=== PATIENT | female | born 1940 | race Caucasian/White ===

== ENCOUNTER 2016-07-15 12:46 | Inpatient (IN) ==
--- NOTE | 2016-07-15 14:18 | Emergency Department Note ---
Disposition Clinical Impression: Acute kidney injury, Dehydration Disposition: Admitted As Inpatient Referrals: Cristiana Briceño CNP [Primary Care Provider] - Forms: ED Satisfaction Letter Altered Mental Status HPI - General Chief Complaint: ED Altered Mental Status Stated Complaint: AMS Time Seen by Provider: 07/15/16 13:04 Source: family Limitations: altered mental status Nursing Notes Reviewed: Yes Vital Signs Reviewed: Yes - History of Present Illness HPI Narrative: Patient presents from the senior care with the complaint of altered mental status. Per family report they states the patient has been acting abnormally. There is a report of similar symptoms in the past. He states that she was eating paper and licking the countertops which they state is abnormal for her. Family at the bedside states the patient has no murmurs department 5 times for the same problem. Patient has been placed on Aricept for the past year. History of present illness was provided by the family. - Related Data Home Medications Medication Instructions Recorded Confirmed Cholecalciferol (D-3) [Vitamin D] 2,000 unit PO DAILY 03/12/16 07/15/16 Citalopram Hydrobromide 20 mg PO DAILY 03/12/16 07/15/16 [Citalopram HBr] Donepezil [Aricept] 10 mg PO HS 03/12/16 07/15/16 Folic Acid 2 mg PO DAILY 03/12/16 07/15/16 Lisinopril-HCTZ 10-12.5 [Prinzide 1 tab PO DAILY 03/12/16 07/15/16 10-12.5] Pravastatin Sodium [Pravachol] 20 mg PO HS 03/12/16 07/15/16 Multivit-Min/Iron/Folic/Lutein 1 tab PO DAILY 06/16/16 07/15/16 [Centrum Silver Women Tablet] Acetaminophen [Tylenol] 650 mg PO Q4H PRN 06/29/16 07/15/16 Memantine HCl [Namenda Xr] 21 mg PO QAM 07/15/16 07/15/16 Sulfamethoxazole/Trimeth SS 1 each PO DAILY 07/15/16 07/15/16 [Bactrim] Previous Rx's Medication Instructions Recorded Aspirin Enteric Coated [Aspirin EC] 81 mg PO DAILY 30 Days 06/18/16 LevETIRAcetam [Keppra] 1,000 mg PO QAM #20 tablet 07/01/16 LevETIRAcetam [Keppra] 500 mg PO QPM 20 Days 07/01/16 Allergies Allergy/AdvReac Type Severity Reaction Status Date / Time No Known Allergies Allergy Verified 06/16/16 16:02 Limitations: ROS unobtainable due to patients medical condition Past Medical History - Past Medical History Medical history: Reports: arthritis, dementia, GERD, hyperlipidemia, hypertension, osteoporosis, syncope, TIA, other Surgical history: Reports: other Psychiatric history: Reports: anxiety, depression, other - Social History Smoking Status: Never smoker Smokeless Tobacco Status: No Alcohol use: Reports: none Drug use: Reports: none Physical Exam - General Limitations: altered mental status General appearance: in no apparent distress - Head Head exam: atraumatic, normocephalic, normal inspection - Eye Eye exam: Present: normal appearance, PERRL, EOMI - ENT ENT exam: normal exam, normal oropharynx, mucous membranes moist - Neck Neck exam: Present: normal inspection, full ROM, trachea midline - Chest Chest inspection: Present: normal inspection, symmetric chest wall rise - Respiratory Respiratory exam: Present: normal lung sounds bilaterally - Cardiovascular Cardiovascular exam: Present: normal rhythm, tachycardia, normal heart sounds - Abdominal Exam Abdominal exam: Present: soft, Non-Tender. Absent: tenderness, distention, guarding, rebound, rigidity - Extremities Exam Extremities exam: Present: normal inspection, full ROM. Absent: tenderness, pedal edema - Back Exam Back exam: Present: normal inspection - Neurological Exam Neurological exam: Present: other (Limited secondary to patient's mental status) - Psychiatric Psychiatric exam: Present: other (Limited secondary to patient's mental status) - Skin Skin exam: Present: warm, dry Course Vital Signs Temperature 100.9 F H 07/15/16 12:47 Pulse Rate 107 07/15/16 12:47 Respiratory Rate 16 07/15/16 12:47 Blood Pressure 136/72 07/15/16 12:47 O2 Sat by Pulse Oximetry 97 07/15/16 12:47 Temperature 0 F L 07/15/16 15:28 Pulse Rate 107 07/15/16 20:14 Respiratory Rate 18 07/15/16 20:14 Blood Pressure 82/42 07/15/16 20:14 O2 Sat by Pulse Oximetry 96 07/15/16 20:14 Oxygen Delivery Oxygen Delivery Room Air Altered Mental Status - Differential Diagnosis Likely: altered mental status, delirium, hypoglycemia, hyponatremia, subarachnoid hemorrhage - Lab Data Result diagrams: 07/15/16 14:43 07/15/16 14:43 Lab Results 07/15/16 07/15/16 07/15/16 Range/Units 13:23 14:43 14:43 WBC 17.7 H (4.3-11.1) K/mcL RBC 4.06 (3.82-4.97) M/mcL Hgb 13.0 (11.5-15.4) g/dL Hct 38.6 (35.3-44.9) % MCV 95.1 (83.0-100.0) fL MCH 32.0 (28.0-33.3) pg MCHC 33.7 (31.6-35.5) g/dL RDW 13.7 (11.5-14.5) % Plt Count 259 (140-400) K/mcL MPV 8.7 L (9.4-12.4) fL Immature Gran % 0.7 (0-4) % Seg Neutrophils % 85.3 % Lymphocytes % 4.5 % Monocytes % 9.2 % Eosinophils % 0.1 % Basophils % 0.2 % Neutrophils # 15.1 H (1.6-8.9) K/mcL Lymphocytes # 0.8 (0.6-4.6) K/mcL Monocytes # 1.6 H (0.0-1.3) K/mcL Eosinophils # 0.0 (0.0-0.6) K/mcL Basophils # 0.0 (0.0-0.2) K/mcL PT 12.1 (9.4-12.1) Seconds INR 1.1 APTT 27.5 (26.0-36.0) Seconds Sodium (136-145) mEq/L Potassium (3.5-4.5) mEq/L Chloride (98-109) mEq/L Carbon Dioxide (19-29) mEq/L BUN (7-20) mg/dL Creatinine (0.57-1.11) mg/dL Est GFR ( Amer) (> 60) Est GFR (Non-Af Amer) (> 60) BUN/Creatinine Ratio (6-26) Glucose (70-99) mg/dL POC Glucose 288 H (58-89) Calculated Osmolality (280-300) Lactic Acid (0.5-2.2) mmol/L Calcium (8.6-10.8) mg/dL Total Bilirubin (0.2-1.2) mg/dL AST (5-34) Units/L ALT (0-55) Units/L Alkaline Phosphatase (38-126) Units/L Troponin I (0-0.03) ng/mL Serum Total Protein (6.0-8.3) g/dL Albumin (3.5-5.0) g/dL Globulin (2.4-3.5) g/dL Albumin/Globulin Ratio (1.1-2.2) Urine Color (Yellow) Urine Clarity (Clear) Urine pH (5.0-8.0) pH Units Ur Specific [place] (1.010-1.025) Urine Protein (Neg-Trace) mg/dL Urine Glucose (UA) (Normal) mg/dL Urine Ketones (Negative) mg/dL Urine Blood (Negative) Urine Nitrite (Negative) Urine Bilirubin (Negative) Urine Urobilinogen (Normal) mg/dL Ur Leukocyte Esterase (Negative) Ur Culture Indicated? (NO) CSF Volume mL CSF Appearance (Clear) CSF Color (Colorless) CSF RBC (0.000 - 0.002) M/mcL CSF Tot Nucleated Cells (0-5) TNC/mcL CSF Glucose (40-70) mg/dL CSF Xanth Comm (Not Observe) CSF Total Protein (15-45) mg/dL 07/15/16 07/15/16 07/15/16 Range/Units 14:43 14:43 14:43 WBC (4.3-11.1) K/mcL RBC (3.82-4.97) M/mcL Hgb (11.5-15.4) g/dL Hct (35.3-44.9) % MCV (83.0-100.0) fL MCH (28.0-33.3) pg MCHC (31.6-35.5) g/dL RDW (11.5-14.5) % Plt Count (140-400) K/mcL MPV (9.4-12.4) fL Immature Gran % (0-4) % Seg Neutrophils % % Lymphocytes % % Monocytes % % Eosinophils % % Basophils % % Neutrophils # (1.6-8.9) K/mcL Lymphocytes # (0.6-4.6) K/mcL Monocytes # (0.0-1.3) K/mcL Eosinophils # (0.0-0.6) K/mcL Basophils # (0.0-0.2) K/mcL PT (9.4-12.1) Seconds INR APTT (26.0-36.0) Seconds Sodium 136 (136-145) mEq/L Potassium 4.1 (3.5-4.5) mEq/L Chloride 104 (98-109) mEq/L Carbon Dioxide 21 (19-29) mEq/L BUN 22 H (7-20) mg/dL Creatinine 1.58 H (0.57-1.11) mg/dL Est GFR ( Amer) 39 L (> 60) Est GFR (Non-Af Amer) 32 L (> 60) BUN/Creatinine Ratio 14 (6-26) Glucose 238 H (70-99) mg/dL POC Glucose (58-89) Calculated Osmolality 293 (280-300) Lactic Acid 3.5 H (0.5-2.2) mmol/L Calcium 9.5 (8.6-10.8) mg/dL Total Bilirubin 0.5 (0.2-1.2) mg/dL AST 19 (5-34) Units/L ALT 24 (0-55) Units/L Alkaline Phosphatase 97 (38-126) Units/L Troponin I 0.00 (0-0.03) ng/mL Serum Total Protein 7.2 (6.0-8.3) g/dL Albumin 3.7 (3.5-5.0) g/dL Globulin 3.5 (2.4-3.5) g/dL Albumin/Globulin Ratio 1.1 (1.1-2.2) Urine Color (Yellow) Urine Clarity (Clear) Urine pH (5.0-8.0) pH Units Ur Specific [place] (1.010-1.025) Urine Protein (Neg-Trace) mg/dL Urine Glucose (UA) (Normal) mg/dL Urine Ketones (Negative) mg/dL Urine Blood (Negative) Urine Nitrite (Negative) Urine Bilirubin (Negative) Urine Urobilinogen (Normal) mg/dL Ur Leukocyte Esterase (Negative) Ur Culture Indicated? (NO) CSF Volume mL CSF Appearance (Clear) CSF Color (Colorless) CSF RBC (0.000 - 0.002) M/mcL CSF Tot Nucleated Cells (0-5) TNC/mcL CSF Glucose (40-70) mg/dL CSF Xanth Comm (Not Observe) CSF Total Protein (15-45) mg/dL 07/15/16 07/15/16 07/15/16 Range/Units 15:35 19:50 21:08 WBC (4.3-11.1) K/mcL RBC (3.82-4.97) M/mcL Hgb (11.5-15.4) g/dL Hct (35.3-44.9) % MCV (83.0-100.0) fL MCH (28.0-33.3) pg MCHC (31.6-35.5) g/dL RDW (11.5-14.5) % Plt Count (140-400) K/mcL MPV (9.4-12.4) fL Immature Gran % (0-4) % Seg Neutrophils % % Lymphocytes % % Monocytes % % Eosinophils % % Basophils % % Neutrophils # (1.6-8.9) K/mcL Lymphocytes # (0.6-4.6) K/mcL Monocytes # (0.0-1.3) K/mcL Eosinophils # (0.0-0.6) K/mcL Basophils # (0.0-0.2) K/mcL PT (9.4-12.1) Seconds INR APTT (26.0-36.0) Seconds Sodium (136-145) mEq/L Potassium (3.5-4.5) mEq/L Chloride (98-109) mEq/L Carbon Dioxide (19-29) mEq/L BUN (7-20) mg/dL Creatinine (0.57-1.11) mg/dL Est GFR ( Amer) (> 60) Est GFR (Non-Af Amer) (> 60) BUN/Creatinine Ratio (6-26) Glucose (70-99) mg/dL POC Glucose 210 H (58-89) Calculated Osmolality (280-300) Lactic Acid (0.5-2.2) mmol/L Calcium (8.6-10.8) mg/dL Total Bilirubin (0.2-1.2) mg/dL AST (5-34) Units/L ALT (0-55) Units/L Alkaline Phosphatase (38-126) Units/L Troponin I (0-0.03) ng/mL Serum Total Protein (6.0-8.3) g/dL Albumin (3.5-5.0) g/dL Globulin (2.4-3.5) g/dL Albumin/Globulin Ratio (1.1-2.2) Urine Color Yellow (Yellow) Urine Clarity Clear (Clear) Urine pH 5.5 (5.0-8.0) pH Units Ur Specific [place] 1.016 (1.010-1.025) Urine Protein Negative (Neg-Trace) mg/dL Urine Glucose (UA) 100 H (Normal) mg/dL Urine Ketones Negative (Negative) mg/dL Urine Blood Negative (Negative) Urine Nitrite Negative (Negative) Urine Bilirubin Negative (Negative) Urine Urobilinogen Normal (Normal) mg/dL Ur Leukocyte Esterase Negative (Negative) Ur Culture Indicated? NO (NO) CSF Volume 6.0 mL CSF Appearance Clear (Clear) CSF Color Colorless (Colorless) CSF RBC < 0.002 (0.000 - 0.002) M/mcL CSF Tot Nucleated Cells 5 (0-5) TNC/mcL CSF Glucose 137 H (40-70) mg/dL CSF Xanth Comm Not Observed (Not Observe) CSF Total Protein 27 (15-45) mg/dL - Radiology Data Radiology results reviewed: Yes I reviewed the patient's radiology results. Chest X-Ray 07/15/16 13:18 IMPRESSION: No evidence of acute cardiopulmonary disease. D/ / Sg Gutierrez MD / Sg Gutierrez MD Interpreting Provider: Sg Gutierrez MD Head CT 07/15/16 13:18 IMPRESSION: No acute intracranial abnormality. D/ / Sg Gutierrez MD / Sg Gutierrez MD Interpreting Provider: Sg Gutierrez MD Lumbar Puncture Fluoroscopy 07/15/16 16:20 IMPRESSION: Successful fluoroscopic-guided lumbar puncture. Of note, the patient moved during collection of the 2nd and 3rd vial, resulting in blood tinged CSF. The collection was terminated after more blood was observed in the tubing during collection of the 4th vial. Findings were discussed with Dr. Nix at approximately 7:30 p.m. on 07/15/2016. D/ / Rosie Peralta MD / Rosie Peralta MD Interpreting Provider: Rosie Peralta MD - EKG Data EKG shows normal: sinus rhythm Rate: normal Rhythm: NSR TPA Checklist - LKW: 3-4.5 hrs Add. Contraindications Patient/family understanding: The patient/family members have been counseled and understood the risk, benefit , and alternatives of treatment. Critical Care Time Total Critical Care Time: 30 Attestation: Critical care performed: Time is exclusive of separately billable procedures. Time includes: direct patient care, patient reassessment, coordination of patient care, interpretation of data (laboratory data, radiology data, and respiratory data), review of patient's medical records, medical consultation and documentation of patient care. Procedures included in critical care time: Procedures excluded from critical care time:
[2016-07-15 14:56] LABS: Basophils % 0.2 %; Eosinophils % 0.1 %; Hematocrit 38.6 % (35.3-44.9); Immature Granulocytes % 0.7 % (0-4); Lymphocytes # 0.8 K/mcL (0.6-4.6); Lymphocytes % 4.5 %; Mean Corpuscular HGB Conc 33.7 g/dL (31.6-35.5); Mean Corpuscular Volume 95.1 fL (83.0-100.0); Mean Platelet Volume 8.7 fL (9.4-12.4); Monocytes # 1.6 K/mcL (0.0-1.3); Monocytes % 9.2 %; Neutrophils # 15.1 K/mcL (1.6-8.9); Platelet Count 259 K/mcL (140-400); Red Blood Count 4.06 M/mcL (3.82-4.97); Red Cell Distribution Width 13.7 % (11.5-14.5); Segmented Neutrophils % 85.3 %
[2016-07-15 15:11] LABS: Albumin 3.7 g/dL (3.5-5.0); Albumin/Globulin Ratio 1.1 (1.1-2.2); Bilirubin,Total 0.5 mg/dL (0.2-1.2); Calcium 9.5 mg/dL (8.6-10.8); Globulin 3.5 g/dL (2.4-3.5); Potassium 4.1 mEq/L (3.5-4.5); Total Protein 7.2 g/dL (6.0-8.3)
[2016-07-15 15:12] LABS: INR 1.1; Prothrombin Time 12.1 Seconds (9.4-12.1)
[2016-07-15 15:15] LABS: Activated Partial Thrombo Time 27.5 Seconds (26.0-36.0)
[2016-07-15] MEDS ORDERED: *HR* LORazepam 2 MG/ML VIAL IVP ONE (15:22)
[2016-07-15 15:47] LABS: Bilirubin,Urine Negative (Negative); Blood,Urine Negative (Negative); Clarity,Urine Clear (Clear); Color,Urine Yellow (Yellow); Glucose,Urine (UA) 100 mg/dL (Normal); Ketones,Urine Negative (Negative); Leukocyte Esterase,Urine Negative (Negative); Nitrite,Urine Negative (Negative); PH,Urine 5.5 pH Units (5.0-8.0); Protein,Urine Negative (Neg-Trace); Specific Gravity,Urine 1.016 (1.010-1.025); Urobilinogen,Urine Normal (Normal)
[2016-07-15 20:14] LABS: Red Blood Cell,CSF < 0.002 M/mcL
[2016-07-15] MEDS ORDERED: 0.9 % Sodium Chloride 500 ML IVC ONE (20:18)
[2016-07-15 20:21] LABS: Appearance,CSF Clear (Clear)
[2016-07-15 20:35] LABS: Glucose,CSF 137 mg/dL (40-70); Total Protein,CSF 27 mg/dL (15-45)
[2016-07-15] MEDS ORDERED: Ampicillin 1,000 MG in 0.9 % Sodium Chloride Mini Bag 100 ML IVPB ONE (21:31)
[2016-07-15] MEDS ORDERED: Acyclovir 500 MG in D5% in Water 100 ML IVPB ONE (21:31)
[2016-07-15] MEDS ORDERED: Vancomycin 1,000 MG in D5% in Water 250 ML IVPB ONE (21:34)
[2016-07-15] MEDS ORDERED: 0.9 % Sodium Chloride 1,000 ML IVC SCH (21:45)
[2016-07-16] MEDS ORDERED: Acetaminophen 325 MG TABLET PO PRN (00:35)
[2016-07-16] MEDS ORDERED: Naloxone 0.4 MG/ML INJ IVP PRN (00:37)
[2016-07-16] MEDS ORDERED: Ondansetron 4 MG/2 ML VIAL IVP PRN (00:37)
--- NOTE | 2016-07-16 02:37 | Internal Med History&Physical ---
Date of Encounter: 07/16/16 Time of Encounter: 21:30 Internal Medicine - H&P: HPI Chief complaint: altered mental status History of present illness: Ms. Suh is a 76 year old female [place] resident, with medical history significant for dementia was brought in by family on account of altered mental status. The family was not at bedside when I examined the patient, attempts to reach her son, Liam by telephone was unsuccessful. HPI obtained for ED notes. As per ED notes, the patient has had similar episodes in the past, this time she has been eating paper and licking counterops. She is on Aricepy for Dementia. As per RN, she has had 3 liquid bowel movements since she arrived the floor. Stool sample are being sent to laboratory. I am unable to obtain other information for her. She is a very poor historian. I am unable to confirm her code status, hence will maintain a FULL CODE status until informed otherwise by a living will document or wish of a legal POA. Her son, Liam Saenz ([phone]) is listed on her facesheet as her emergency contact. Medical history: Reports: arthritis, dementia, GERD, hyperlipidemia, hypertension, osteoporosis, syncope, TIA, other Surgical history: Reports: other Psychiatric history: Reports: anxiety, depression, other Smoking Status: Never smoker Smokeless Tobacco Status: No Alcohol use: Reports: none Drug use: Reports: none Family history: Not obtainable due to patient's mental status ROS: Not obtainable due to patient's mental status, see reported items under HPI Vital Signs Temperature 100.9 F H 07/15/16 12:47 Pulse Rate 107 07/15/16 12:47 Respiratory Rate 16 07/15/16 12:47 Blood Pressure 136/72 07/15/16 12:47 O2 Sat by Pulse Oximetry 97 07/15/16 12:47 Temperature 0 F L 07/15/16 15:28 Pulse Rate 107 07/15/16 20:14 Respiratory Rate 18 07/15/16 20:14 Blood Pressure 82/42 07/15/16 20:14 O2 Sat by Pulse Oximetry 96 07/15/16 20:14 Not in distress, not pale, anicteric, afebrile,acyanotic, she only intermittently verbal, some cognitive impair, emanation suggestive of fecal incontinence or fecal accident. HEENT: Trachea is central, no cervical or jugular lymphadenopathy. Chest: Clinically clear Heart: rrr, hs1/2, no murmurs. Abdomen: soft, non-tender, no masses. 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 Able to answer a few questions. She does not know she is in hospital or why she is here. She moves all limbs spontaneously. Neck is supple, [place] is negative Extremities: No pedal edema, normal pedal pulses, no calf tenderness SKIN: No active skin lesion Lab Results 07/15/16 07/15/16 07/15/16 Range/Units 13:23 14:43 14:43 WBC 17.7 H (4.3-11.1) K/mcL RBC 4.06 (3.82-4.97) M/mcL Hgb 13.0 (11.5-15.4) g/dL Hct 38.6 (35.3-44.9) % MCV 95.1 (83.0-100.0) fL MCH 32.0 (28.0-33.3) pg MCHC 33.7 (31.6-35.5) g/dL RDW 13.7 (11.5-14.5) % Plt Count 259 (140-400) K/mcL MPV 8.7 L (9.4-12.4) fL Immature Gran % 0.7 (0-4) % Seg Neutrophils % 85.3 % Lymphocytes % 4.5 % Monocytes % 9.2 % Eosinophils % 0.1 % Basophils % 0.2 % Neutrophils # 15.1 H (1.6-8.9) K/mcL Lymphocytes # 0.8 (0.6-4.6) K/mcL Monocytes # 1.6 H (0.0-1.3) K/mcL Eosinophils # 0.0 (0.0-0.6) K/mcL Basophils # 0.0 (0.0-0.2) K/mcL PT 12.1 (9.4-12.1) Seconds INR 1.1 APTT 27.5 (26.0-36.0) Seconds Sodium (136-145) mEq/L Potassium (3.5-4.5) mEq/L Chloride (98-109) mEq/L Carbon Dioxide (19-29) mEq/L BUN (7-20) mg/dL Creatinine (0.57-1.11) mg/dL Est GFR ( Amer) (> 60) Est GFR (Non-Af Amer) (> 60) BUN/Creatinine Ratio (6-26) Glucose (70-99) mg/dL POC Glucose 288 H (58-89) Calculated Osmolality (280-300) Lactic Acid (0.5-2.2) mmol/L Calcium (8.6-10.8) mg/dL Total Bilirubin (0.2-1.2) mg/dL AST (5-34) Units/L ALT (0-55) Units/L Alkaline Phosphatase (38-126) Units/L Troponin I (0-0.03) ng/mL Serum Total Protein (6.0-8.3) g/dL Albumin (3.5-5.0) g/dL Globulin (2.4-3.5) g/dL Albumin/Globulin Ratio (1.1-2.2) Urine Color (Yellow) Urine Clarity (Clear) Urine pH (5.0-8.0) pH Units Ur Specific [place] (1.010-1.025) Urine Protein (Neg-Trace) mg/dL Urine Glucose (UA) (Normal) mg/dL Urine Ketones (Negative) mg/dL Urine Blood (Negative) Urine Nitrite (Negative) Urine Bilirubin (Negative) Urine Urobilinogen (Normal) mg/dL Ur Leukocyte Esterase (Negative) Ur Culture Indicated? (NO) CSF Volume mL CSF Appearance (Clear) CSF Color (Colorless) CSF RBC (0.000 - 0.002) M/mcL CSF Tot Nucleated Cells (0-5) TNC/mcL CSF Glucose (40-70) mg/dL CSF Xanth Comm (Not Observe) CSF Total Protein (15-45) mg/dL 07/15/16 07/15/16 07/15/16 Range/Units 14:43 14:43 14:43 WBC (4.3-11.1) K/mcL RBC (3.82-4.97) M/mcL Hgb (11.5-15.4) g/dL Hct (35.3-44.9) % MCV (83.0-100.0) fL MCH (28.0-33.3) pg MCHC (31.6-35.5) g/dL RDW (11.5-14.5) % Plt Count (140-400) K/mcL MPV (9.4-12.4) fL Immature Gran % (0-4) % Seg Neutrophils % % Lymphocytes % % Monocytes % % Eosinophils % % Basophils % % Neutrophils # (1.6-8.9) K/mcL Lymphocytes # (0.6-4.6) K/mcL Monocytes # (0.0-1.3) K/mcL Eosinophils # (0.0-0.6) K/mcL Basophils # (0.0-0.2) K/mcL PT (9.4-12.1) Seconds INR APTT (26.0-36.0) Seconds Sodium 136 (136-145) mEq/L Potassium 4.1 (3.5-4.5) mEq/L Chloride 104 (98-109) mEq/L Carbon Dioxide 21 (19-29) mEq/L BUN 22 H (7-20) mg/dL Creatinine 1.58 H (0.57-1.11) mg/dL Est GFR ( Amer) 39 L (> 60) Est GFR (Non-Af Amer) 32 L (> 60) BUN/Creatinine Ratio 14 (6-26) Glucose 238 H (70-99) mg/dL POC Glucose (58-89) Calculated Osmolality 293 (280-300) Lactic Acid 3.5 H (0.5-2.2) mmol/L Calcium 9.5 (8.6-10.8) mg/dL Total Bilirubin 0.5 (0.2-1.2) mg/dL AST 19 (5-34) Units/L ALT 24 (0-55) Units/L Alkaline Phosphatase 97 (38-126) Units/L Troponin I 0.00 (0-0.03) ng/mL Serum Total Protein 7.2 (6.0-8.3) g/dL Albumin 3.7 (3.5-5.0) g/dL Globulin 3.5 (2.4-3.5) g/dL Albumin/Globulin Ratio 1.1 (1.1-2.2) Urine Color (Yellow) Urine Clarity (Clear) Urine pH (5.0-8.0) pH Units Ur Specific [place] (1.010-1.025) Urine Protein (Neg-Trace) mg/dL Urine Glucose (UA) (Normal) mg/dL Urine Ketones (Negative) mg/dL Urine Blood (Negative) Urine Nitrite (Negative) Urine Bilirubin (Negative) Urine Urobilinogen (Normal) mg/dL Ur Leukocyte Esterase (Negative) Ur Culture Indicated? (NO) CSF Volume mL CSF Appearance (Clear) CSF Color (Colorless) CSF RBC (0.000 - 0.002) M/mcL CSF Tot Nucleated Cells (0-5) TNC/mcL CSF Glucose (40-70) mg/dL CSF Xanth Comm (Not Observe) CSF Total Protein (15-45) mg/dL 07/15/16 07/15/16 07/15/16 Range/Units 15:35 19:50 21:08 WBC (4.3-11.1) K/mcL RBC (3.82-4.97) M/mcL Hgb (11.5-15.4) g/dL Hct (35.3-44.9) % MCV (83.0-100.0) fL MCH (28.0-33.3) pg MCHC (31.6-35.5) g/dL RDW (11.5-14.5) % Plt Count (140-400) K/mcL MPV (9.4-12.4) fL Immature Gran % (0-4) % Seg Neutrophils % % Lymphocytes % % Monocytes % % Eosinophils % % Basophils % % Neutrophils # (1.6-8.9) K/mcL Lymphocytes # (0.6-4.6) K/mcL Monocytes # (0.0-1.3) K/mcL Eosinophils # (0.0-0.6) K/mcL Basophils # (0.0-0.2) K/mcL PT (9.4-12.1) Seconds INR APTT (26.0-36.0) Seconds Sodium (136-145) mEq/L Potassium (3.5-4.5) mEq/L Chloride (98-109) mEq/L Carbon Dioxide (19-29) mEq/L BUN (7-20) mg/dL Creatinine (0.57-1.11) mg/dL Est GFR ( Amer) (> 60) Est GFR (Non-Af Amer) (> 60) BUN/Creatinine Ratio (6-26) Glucose (70-99) mg/dL POC Glucose 210 H (58-89) Calculated Osmolality (280-300) Lactic Acid (0.5-2.2) mmol/L Calcium (8.6-10.8) mg/dL Total Bilirubin (0.2-1.2) mg/dL AST (5-34) Units/L ALT (0-55) Units/L Alkaline Phosphatase (38-126) Units/L Troponin I (0-0.03) ng/mL Serum Total Protein (6.0-8.3) g/dL Albumin (3.5-5.0) g/dL Globulin (2.4-3.5) g/dL Albumin/Globulin Ratio (1.1-2.2) Urine Color Yellow (Yellow) Urine Clarity Clear (Clear) Urine pH 5.5 (5.0-8.0) pH Units Ur Specific [place] 1.016 (1.010-1.025) Urine Protein Negative (Neg-Trace) mg/dL Urine Glucose (UA) 100 H (Normal) mg/dL Urine Ketones Negative (Negative) mg/dL Urine Blood Negative (Negative) Urine Nitrite Negative (Negative) Urine Bilirubin Negative (Negative) Urine Urobilinogen Normal (Normal) mg/dL Ur Leukocyte Esterase Negative (Negative) Ur Culture Indicated? NO (NO) CSF Volume 6.0 mL CSF Appearance Clear (Clear) CSF Color Colorless (Colorless) CSF RBC < 0.002 (0.000 - 0.002) M/mcL CSF Tot Nucleated Cells 5 (0-5) TNC/mcL CSF Glucose 137 H (40-70) mg/dL CSF Xanth Comm Not Observed (Not Observe) CSF Total Protein 27 (15-45) mg/dL Chest X-Ray 07/15/16 13:18 No evidence of acute cardiopulmonary disease. Head CT 07/15/16 13:18 No acute intracranial abnormality. Lumbar Puncture Fluoroscopy 07/15/16 16:20 Successful fluoroscopic-guided lumbar puncture. Of note, the patient moved during collection of the 2nd and 3rd vial, resulting in blood tinged CSF. The collection was terminated after more blood was observed in the tubing during collection of the 4th vial. EKG: NSR: No acute, no evidence of ischemia. IMP Altered mental status: CSF microscopy and chemistry does not favor meningitis SIRS Acute renal failure Acute diarrhea Chronic morbidities HTN HLD Osteoporosis Dementia Arthritis GERD PLAN Admit ivf ns @ 125 Ceftriaxone 1g QD Stool studies including c diff toxin PCR Insert rectal tube Trend WBC Trend renal functions DVT prophylaxis Continue essential medications of chronic morbidities. I am unable to discuss my assessment with the patient due to her mental status, comprehension doubtful. She is high risk due to feature suggestive of early sepsis. Past Med Surg Social Fam HX - Past Medical History Medical history: arthritis, dementia, GERD, hyperlipidemia, hypertension, osteoporosis, syncope, TIA, other Psychiatric history: anxiety, depression, other - Past Surgical History Surgical History: other - Social History Smoking Status: Never smoker Smokeless Tobacco Status: No Alcohol use: none Drug use: none Internal Medicine - H&P: Meds Cholecalciferol (D-3) [Vitamin D] 2,000 unit PO DAILY 03/12/16 [History] Citalopram Hydrobromide [Citalopram HBr] 20 mg PO DAILY 03/12/16 [History] Donepezil [Aricept] 10 mg PO HS 03/12/16 [History] Folic Acid 2 mg PO DAILY 03/12/16 [History] Lisinopril-HCTZ 10-12.5 [Prinzide 10-12.5] 1 tab PO DAILY 03/12/16 [History] Pravastatin Sodium [Pravachol] 20 mg PO HS 03/12/16 [History] Multivit-Min/Iron/Folic/Lutein [Centrum Silver Women Tablet] 1 tab PO DAILY 05/22 [History] Aspirin Enteric Coated [Aspirin EC] 81 mg PO DAILY 30 Days 06/18/16 [Rx] Acetaminophen [Tylenol] 650 mg PO Q4H PRN 06/29/16 [History] LevETIRAcetam [Keppra] 1,000 mg PO QAM #20 tablet 07/01/16 [Rx] LevETIRAcetam [Keppra] 500 mg PO QPM 20 Days 07/01/16 [Rx] Memantine HCl [Namenda Xr] 21 mg PO QAM 07/15/16 [History] Sulfamethoxazole/Trimeth SS [Bactrim] 1 each PO DAILY 07/15/16 [History] Allergies No Known Allergies Allergy (Verified 06/16/16 16:02) All Systems PM: A 10-system review of systems was performed and is negative for pertinent findings except as documented above in the HPI. - Constitutional Vitals: Temp Pulse Resp BP Pulse Ox 99.2 F 102 24 117/54 96 07/15/16 23:55 07/15/16 23:55 07/15/16 23:55 07/15/16 23:55 07/15/16 23:55 Internal Med - H&P Results - Labs CBC & Chem 7: 07/15/16 14:43 07/15/16 14:43
[2016-07-16] MEDS ORDERED: 0.9 % Sodium Chloride 500 ML IVC ONE (03:44)
[2016-07-16] MEDS: 0.9 % Sodium Chloride 1,000 ML IVC SCH ×2 (04:32→16:17)
[2016-07-16] MEDS ORDERED: *HR* Enoxaparin 40 MG/0.4 ML SYRINGE SQ SCH (06:00)
[2016-07-16] MEDS: levETIRAcetam 250 MG TABLET PO SCH ×2 (08:53→16:18)
[2016-07-16] MEDS: Multivit/Ca/Min/Fe/FA 1 TAB TABLET PO SCH (08:53)
[2016-07-16] MEDS: Cholecalciferol (D-3) 1,000 UNIT TABLET PO SCH (08:54)
[2016-07-16] MEDS: Famotidine 20 MG TABLET PO SCH (08:54)
[2016-07-16] MEDS: Aspirin Enteric Coated 81 MG Tablet PO SCH (08:54)
[2016-07-16] MEDS: MEMANTINE HCL 21 MG PO SCH (08:55)
[2016-07-16] MEDS: Folic Acid 1 MG TABLET PO SCH (09:01)
[2016-07-16] MEDS: Vancomycin Oral Soln 250 MG/2.5 ML UDC PO SCH ×4 (09:03→20:56)
[2016-07-16 09:20] LABS: Hematocrit 33.8 % (35.3-44.9); Mean Corpuscular HGB Conc 33.4 g/dL (31.6-35.5); Mean Corpuscular Hemoglobin 31.8 pg (28.0-33.3); Mean Corpuscular Volume 95.2 fL (83.0-100.0); Mean Platelet Volume 8.7 fL (9.4-12.4); Platelet Count 225 K/mcL (140-400); Red Blood Count 3.55 M/mcL (3.82-4.97); Red Cell Distribution Width 13.7 % (11.5-14.5)
[2016-07-16 09:24] LABS: Hemoglobin 11.3 g/dL (11.5-15.4)
[2016-07-16 09:37] LABS: BUN/Creatinine Ratio 22 (6-26); Blood Urea Nitrogen 23 mg/dL (7-20); Calcium 8.2 mg/dL (8.6-10.8); Carbon Dioxide 17 mEq/L (19-29); Chloride 110 mEq/L (98-109); Glucose 118 mg/dL (70-99); Osmolality,Calculated 291 (280-300); Potassium 3.7 mEq/L (3.5-4.5); Sodium 138 mEq/L (136-145); eGFR For African Americans > 60 (> 60); eGFR For Non-African Americans 52 (> 60)
--- NOTE | 2016-07-16 14:39 | Electrocardiograph Report ---
[facility] Test Date: 2016-07-15 Pat Name: Licha Suh Department: 104 Room: 2N08 Gender: F Billing Analyst: ANTONY : 1940 Requested By: Jae Nix Order Number: [id number] Reading MD: Rashida Rai Measurements Intervals [place] Rate: 97 P: 52 CA: 134 QRS: 63 QRSD: 88 T: 60 QT: 340 QTc: 394 Interpretive Statements SINUS RHYTHM Electronically Signed On 07-16-16 14:27:48 EST by Rashida Rai
--- NOTE | 2016-07-16 18:28 | Internal Med Progress Note ---
Date of Encounter: 07/16/16 Time of Encounter: 12:10 - Assessment and plan (1) C. difficile diarrhea Current Visit: Yes Status: Acute Assessment and plan: Pt apparently been on antibiotics recently. Discontinue ceftriaxone and IV vancomycin. Start oral vancomycin (2) Acute kidney injury Current Visit: Yes Status: Acute Assessment and plan: Likely due to volume depletion from diarrhea / sepsis. Treated with intravenous fluid infusion and improved. (3) Acute metabolic encephalopathy Current Visit: No Status: Acute Assessment and plan: Possibility to acute kidney injury/sepsis on a background of dementia. Improving (4) DVT prophylaxis Current Visit: No Status: Acute Assessment and plan: Continue Lovenox (5) Dementia Current Visit: No Status: Chronic Assessment and plan: Continue donepezil Qualifiers: Dementia type: Alzheimer's disease Alzheimer's disease onset: unspecified onset Dementia behavioral disturbance: without behavioral disturbance Qualified Code(s): G30.9 - Alzheimer's disease, unspecified; F02.80 - Dementia in other diseases classified elsewhere without behavioral disturbance - Subjective Interval history: Patient seen and examined the bedside. Patient is confused, but denies any abdominal pain nausea and vomiting. Patient's daughter, is in the bedside reports that the patient lives with her. Has been on antibiotics recently. Multiple episodes of diarrhea since 07/14/16. Pt apparently been more confused - Constitutional Vitals: Temp Pulse Resp BP Pulse Ox 98.0 F 81 14 102/43 98 07/16/16 16:24 07/16/16 16:24 07/16/16 16:24 07/16/16 16:24 07/16/16 16:24 Exam: General: Not in acute distress at the time of my evaluation Lungs: Clear to auscultation Cardiac: Regular rate and rhythm. No significant murmurs Abdomen: Soft, non tender. Bowel sounds present Neurological: Alert and confused Psych: Not agrressive or agitated Extremities: no significant leg edema Skin: No generalized rash Internal Medicine: Result - Labs CBC & Chem 7: 07/16/16 09:12 07/16/16 09:12 Labs: Short CBC 07/16/16 Range/Units 09:12 WBC 16.6 H (4.3-11.1) K/mcL Hgb 11.3 L D (11.5-15.4) g/dL Hct 33.8 L (35.3-44.9) % Plt Count 225 (140-400) K/mcL BMP 07/16/16 09:12 Sodium 138 Potassium 3.7 Chloride 110 H Carbon Dioxide 17 L BUN 23 H Creatinine 1.03 Glucose 118 H Calcium 8.2 L Microbiology 07/16/16 01:20 Stool Leukocyte Esterase (LILIBETH) - Final 07/15/16 19:50 Cerebral Spinal Fluid Gram Stain - Final 07/15/16 20:55 Nasopharyngeal Influenza Types A,B Antigen (LILIBETH) - Final Serology 07/16/16 01:20: C. difficile Tox (PCR) Positive - ABG Interpretation ABG results: PT/INR, D-dimer PT 12.1 Seconds (9.4-12.1) 07/15/16 14:43 - Impressions Impressions KUB X-Ray 07/16/16 03:02 IMPRESSION: 1. Nonobstructive bowel gas pattern. 2. Gas-filled small bowel in the left hemiabdomen without significant distention. Findings are nonspecific but can be seen in the setting of mild enteritis. D/ / 07/16/2016 14:31:41 Rosie Peralta MD / [email or web address] Interpreting Provider: Rosie Peralta MD Consult Discharge Plan - Plan Referrals: Cristiana Briceño CNP [Primary Care Provider] -
[2016-07-17] MEDS: 0.9 % Sodium Chloride 1,000 ML IVC SCH ×3 (00:36→09:32)
[2016-07-17] MEDS: *HR* Enoxaparin 40 MG/0.4 ML SYRINGE SQ SCH (06:43)
[2016-07-17 07:57] LABS: BUN/Creatinine Ratio 18 (6-26); Calcium 7.1 mg/dL (8.6-10.8); Carbon Dioxide 16 mEq/L (19-29); Chloride 117 mEq/L (98-109); Glucose 75 mg/dL (70-99); Osmolality,Calculated 288 (280-300); Sodium 140 mEq/L (136-145); eGFR For African Americans > 60 (> 60); eGFR For Non-African Americans > 60 (> 60)
[2016-07-17 07:59] LABS: Hematocrit 29.3 % (35.3-44.9); Hemoglobin 9.9 g/dL (11.5-15.4); Mean Corpuscular HGB Conc 33.8 g/dL (31.6-35.5); Mean Corpuscular Hemoglobin 31.9 pg (28.0-33.3); Mean Corpuscular Volume 94.5 fL (83.0-100.0); Mean Platelet Volume 9.2 fL (9.4-12.4); Platelet Count 202 K/mcL (140-400); Red Cell Distribution Width 13.4 % (11.5-14.5)
[2016-07-17 08:02] LABS: Blood Urea Nitrogen 12 mg/dL (7-20)
[2016-07-17] MEDS: Folic Acid 1 MG TABLET PO SCH (08:28)
[2016-07-17] MEDS: Multivit/Ca/Min/Fe/FA 1 TAB TABLET PO SCH (08:29)
[2016-07-17] MEDS: Famotidine 20 MG TABLET PO SCH (08:29)
[2016-07-17] MEDS: MEMANTINE HCL 21 MG PO SCH (08:29)
[2016-07-17] MEDS: Aspirin Enteric Coated 81 MG Tablet PO SCH (08:29)
[2016-07-17] MEDS: Vancomycin Oral Soln 250 MG/2.5 ML UDC PO SCH ×4 (08:29→21:56)
[2016-07-17] MEDS: Cholecalciferol (D-3) 1,000 UNIT TABLET PO SCH (08:29)
[2016-07-17] MEDS: levETIRAcetam 250 MG TABLET PO SCH ×2 (08:29→16:55)
[2016-07-17] MEDS ORDERED: *HR* LORazepam 2 MG/ML VIAL IVP STA (10:18)
--- NOTE | 2016-07-17 20:18 | Internal Med Progress Note ---
Date of Encounter: 07/17/16 Time of Encounter: 12:40 - Assessment and plan (1) C. difficile diarrhea Current Visit: Yes Status: Acute Assessment and plan: Pt apparently been on antibiotics recently. Continue oral vancomycin (2) Acute kidney injury Current Visit: Yes Status: Acute Assessment and plan: Likely due to volume depletion from diarrhea / sepsis. Treated with intravenous fluid infusion and improved. (3) Acute metabolic encephalopathy Current Visit: No Status: Acute Assessment and plan: Possibility to acute kidney injury/sepsis on a background of dementia. Improving (4) DVT prophylaxis Current Visit: No Status: Acute Assessment and plan: Continue Lovenox (5) Dementia Current Visit: No Status: Chronic Assessment and plan: Continue donepezil Qualifiers: Dementia type: Alzheimer's disease Alzheimer's disease onset: unspecified onset Dementia behavioral disturbance: without behavioral disturbance Qualified Code(s): G30.9 - Alzheimer's disease, unspecified; F02.80 - Dementia in other diseases classified elsewhere without behavioral disturbance - Subjective Interval history: Patient seen and examined the bedside. Pt somnulent at the time of my evaluation - pt was previously given ativan for agitation. Output form the rectal tube is improving - Constitutional Vitals: Temp Pulse Resp BP Pulse Ox 97.7 F 94 16 106/52 98 07/17/16 16:55 07/17/16 16:55 07/17/16 16:55 07/17/16 16:55 07/17/16 16:55 Exam: General: Somnolent. Not in acute distress at the time of my evaluation Lungs: Clear to auscultation Cardiac: Regular rate and rhythm. No significant murmurs Abdomen: Soft, non tender. Bowel sounds present. Rectal tube in place Neurological: Somnulent Psych: Somnulent Extremities: no significant leg edema Skin: No generalized rash Internal Medicine: Result - Labs CBC & Chem 7: 07/17/16 07:20 07/17/16 07:20 Labs: Short CBC 07/17/16 Range/Units 07:20 WBC 13.4 H (4.3-11.1) K/mcL Hgb 9.9 L (11.5-15.4) g/dL Hct 29.3 L (35.3-44.9) % Plt Count 202 (140-400) K/mcL BMP 07/17/16 07:20 Sodium 140 Potassium 4.0 Chloride 117 H Carbon Dioxide 16 L BUN 12 D Creatinine 0.65 Glucose 75 Calcium 7.1 L - ABG Interpretation ABG results: PT/INR, D-dimer PT 12.1 Seconds (9.4-12.1) 07/15/16 14:43 Consult Discharge Plan - Plan Referrals: Cristiana Briceño CNP [Primary Care Provider] - 07/26/16 1:15 pm
[2016-07-17] MEDS ORDERED: *HR* LORazepam 2 MG/ML VIAL IVP ONE ×2 (21:34→21:35)
[2016-07-18] MEDS: 0.9 % Sodium Chloride 1,000 ML IVC SCH ×2 (00:10→16:54)
[2016-07-18 04:29] LABS: Hematocrit 31.1 % (35.3-44.9); Hemoglobin 10.2 g/dL (11.5-15.4); Mean Corpuscular HGB Conc 32.8 g/dL (31.6-35.5); Mean Corpuscular Hemoglobin 31.7 pg (28.0-33.3); Mean Corpuscular Volume 96.6 fL (83.0-100.0); Mean Platelet Volume 8.8 fL (9.4-12.4); Platelet Count 220 K/mcL (140-400); Red Blood Count 3.22 M/mcL (3.82-4.97); Red Cell Distribution Width 13.2 % (11.5-14.5)
[2016-07-18 04:30] LABS: Ionized Calcium 0.97 mmol/L (1.15-1.35)
[2016-07-18 04:42] LABS: Alanine Aminotransferase 13 Units/L (0-55); Albumin 2.3 g/dL (3.5-5.0); Albumin/Globulin Ratio 0.8 (1.1-2.2); Alkaline Phosphatase 65 Units/L (38-126); Aspartate Amino Transferase 16 Units/L (5-34); BUN/Creatinine Ratio 13 (6-26); Bilirubin,Total 0.5 mg/dL (0.2-1.2); Blood Urea Nitrogen 9 mg/dL (7-20); Calcium 8.2 mg/dL (8.6-10.8); Carbon Dioxide 18 mEq/L (19-29); Chloride 116 mEq/L (98-109); Globulin 2.8 g/dL (2.4-3.5); Glucose 83 mg/dL (70-99); Magnesium 1.6 mg/dL (1.6-2.6); Osmolality,Calculated 288 (280-300); Potassium 3.6 mEq/L (3.5-4.5); Sodium 140 mEq/L (136-145); Total Protein 5.1 g/dL (6.0-8.3); eGFR For African Americans > 60 (> 60); eGFR For Non-African Americans > 60 (> 60)
[2016-07-18] MEDS: *HR* Enoxaparin 40 MG/0.4 ML SYRINGE SQ SCH (06:09)
[2016-07-18] MEDS: Famotidine 20 MG TABLET PO SCH (08:18)
[2016-07-18] MEDS: levETIRAcetam 250 MG TABLET PO SCH ×2 (08:18→16:54)
[2016-07-18] MEDS: MEMANTINE HCL 21 MG PO SCH (08:18)
[2016-07-18] MEDS: Cholecalciferol (D-3) 1,000 UNIT TABLET PO SCH (08:18)
[2016-07-18] MEDS: Multivit/Ca/Min/Fe/FA 1 TAB TABLET PO SCH (08:19)
[2016-07-18] MEDS: Aspirin Enteric Coated 81 MG Tablet PO SCH (08:19)
[2016-07-18] MEDS: Vancomycin Oral Soln 250 MG/2.5 ML UDC PO SCH ×4 (08:19→22:50)
[2016-07-18] MEDS: Folic Acid 1 MG TABLET PO SCH (08:22)
[2016-07-18] MEDS ORDERED: Calcium Gluconate 1,000 MG in D5% in Water 100 ML IVPB ONE (09:02)
--- NOTE | 2016-07-18 20:59 | Internal Med Progress Note ---
Date of Encounter: 07/18/16 Time of Encounter: 11:35 - Assessment and plan (1) C. difficile diarrhea Current Visit: Yes Status: Acute Assessment and plan: Pt apparently been on antibiotics recently. Continue oral vancomycin. fecal output is reducing. WBC count is improving (2) Acute kidney injury Current Visit: Yes Status: Acute Assessment and plan: Likely due to volume depletion from diarrhea / sepsis. Treated with intravenous fluid infusion and improved. (3) Acute metabolic encephalopathy Current Visit: No Status: Acute Assessment and plan: Possibility to acute kidney injury/sepsis on a background of dementia. Improving (4) DVT prophylaxis Current Visit: No Status: Acute Assessment and plan: Continue Lovenox (5) Dementia Current Visit: No Status: Chronic Assessment and plan: Continue donepezil Qualifiers: Dementia type: Alzheimer's disease Alzheimer's disease onset: unspecified onset Dementia behavioral disturbance: without behavioral disturbance Qualified Code(s): G30.9 - Alzheimer's disease, unspecified; F02.80 - Dementia in other diseases classified elsewhere without behavioral disturbance - Subjective Interval history: Pt is seen and examined at the bedside and chart reviewed. Pt reports feeling better today. Denies abdominal pain, nausea, vomiting, fever, chills. - Constitutional Vitals: Temp Pulse Resp BP Pulse Ox 97.5 F L 71 18 135/56 98 07/18/16 19:54 07/18/16 19:54 07/18/16 19:54 07/18/16 19:54 07/18/16 19:54 Exam: General: Not in acute distress at the time of my evaluation Lungs: Clear to auscultation Cardiac: Regular rate and rhythm. No significant murmurs Abdomen: Soft, non tender. Bowel sounds present Neurological: Confused Psych: Not aggressive or agitated at the time of my evaluation Extremities: no significant leg edema Skin: No generalized rash Internal Medicine: Result - Labs CBC & Chem 7: 07/19/16 04:20 07/19/16 04:20 Labs: Short CBC 07/18/16 Range/Units 04:14 WBC 7.8 (4.3-11.1) K/mcL Hgb 10.2 L (11.5-15.4) g/dL Hct 31.1 L (35.3-44.9) % Plt Count 220 (140-400) K/mcL BMP 07/18/16 04:14 Sodium 140 Potassium 3.6 Chloride 116 H Carbon Dioxide 18 L BUN 9 Creatinine 0.68 Glucose 83 Calcium 8.2 L D Liver Function 07/18/16 Range/Units 04:14 Total Bilirubin 0.5 (0.2-1.2) mg/dL AST 16 (5-34) Units/L ALT 13 (0-55) Units/L Alkaline Phosphatase 65 (38-126) Units/L Albumin 2.3 L D (3.5-5.0) g/dL - ABG Interpretation ABG results: PT/INR, D-dimer PT 12.1 Seconds (9.4-12.1) 07/15/16 14:43 - Impressions Impressions KUB X-Ray 07/16/16 03:02 IMPRESSION: 1. Nonobstructive bowel gas pattern. 2. Gas-filled small bowel in the left hemiabdomen without significant distention. Findings are nonspecific but can be seen in the setting of mild enteritis. D/ / 07/16/2016 14:31:41 Rosie Peralta MD / [email or web address] Interpreting Provider: Rosie Peralta MD Consult Discharge Plan - Plan Referrals: Cristiana Briceño CNP [Primary Care Provider] - 07/26/16 1:15 pm
[2016-07-18] MEDS ORDERED: Temazepam 15 MG CAPSULE PO PRN (21:19)
[2016-07-19 04:38] LABS: Hematocrit 31.7 % (35.3-44.9); Mean Corpuscular HGB Conc 34.7 g/dL (31.6-35.5); Mean Corpuscular Volume 92.2 fL (83.0-100.0); Mean Platelet Volume 8.8 fL (9.4-12.4); Platelet Count 257 K/mcL (140-400); Red Blood Count 3.44 M/mcL (3.82-4.97); Red Cell Distribution Width 12.8 % (11.5-14.5)
[2016-07-19 04:52] LABS: BUN/Creatinine Ratio 12 (6-26); Blood Urea Nitrogen 8 mg/dL (7-20); Calcium 8.3 mg/dL (8.6-10.8); Carbon Dioxide 21 mEq/L (19-29); Chloride 111 mEq/L (98-109); Glucose 85 mg/dL (70-99); Osmolality,Calculated 288 (280-300); Potassium 3.3 mEq/L (3.5-4.5); Sodium 140 mEq/L (136-145); eGFR For African Americans > 60 (> 60); eGFR For Non-African Americans > 60 (> 60)
[2016-07-19] MEDS: *HR* Enoxaparin 40 MG/0.4 ML SYRINGE SQ SCH (06:08)
[2016-07-19] MEDS: MEMANTINE HCL 21 MG PO SCH (09:26)
[2016-07-19] MEDS: Cholecalciferol (D-3) 1,000 UNIT TABLET PO SCH (09:26)
[2016-07-19] MEDS: Vancomycin Oral Soln 250 MG/2.5 ML UDC PO SCH ×3 (09:26→17:23)
[2016-07-19] MEDS: Folic Acid 1 MG TABLET PO SCH (09:26)
[2016-07-19] MEDS: Aspirin Enteric Coated 81 MG Tablet PO SCH (09:26)
[2016-07-19] MEDS: levETIRAcetam 250 MG TABLET PO SCH ×2 (09:26→17:24)
[2016-07-19] MEDS: Multivit/Ca/Min/Fe/FA 1 TAB TABLET PO SCH (09:26)
[2016-07-19] MEDS: Famotidine 20 MG TABLET PO SCH (09:26)
--- NOTE | 2016-07-19 16:54 | Discharge Summary ---
Date of Encounter: 07/19/16 Time of Encounter: 10:00 - Discharge Diagnosis (1) C. difficile diarrhea Priority: Primary Status: Acute Comments: Patient was on oral antibiotics prior to this admission. Bactrim was discontinued. Treated with oral vancomycin with clinical improvement. Patient had leukocytosis at admission which was likely C. difficile infection. Leukocytosis is resolved now. (2) Acute kidney injury Priority: Secondary Status: Resolved Comments: Likely due to volume depletion/sepsis. Improved with IV fluids. (3) Acute metabolic encephalopathy Priority: Secondary Status: Acute Comments: Likely secondary to MARION/sepsis, on a background of dementia. Improving. (4) Dementia Priority: Secondary Status: Chronic Comments: Continue her home medications. Qualifiers: Dementia type: Alzheimer's disease Alzheimer's disease onset: unspecified onset Dementia behavioral disturbance: without behavioral disturbance Qualified Code(s): G30.9 - Alzheimer's disease, unspecified; F02.80 - Dementia in other diseases classified elsewhere without behavioral disturbance - Discharge Medications Prescriptions: Vancomycin Oral Soln [Vancocin] 250 mg PO QID 12 Days Home Medications: Cholecalciferol (D-3) [Vitamin D] 2,000 unit PO DAILY 03/12/16 [History] Citalopram Hydrobromide [Citalopram HBr] 20 mg PO DAILY 03/12/16 [History] Donepezil [Aricept] 10 mg PO HS 03/12/16 [History] Folic Acid 2 mg PO DAILY 03/12/16 [History] Lisinopril-HCTZ 10-12.5 [Prinzide 10-12.5] 1 tab PO DAILY 03/12/16 [History] Pravastatin Sodium [Pravachol] 20 mg PO HS 03/12/16 [History] Multivit-Min/Iron/Folic/Lutein [Centrum Silver Women Tablet] 1 tab PO DAILY 05/22 [History] Aspirin Enteric Coated [Aspirin EC] 81 mg PO DAILY 30 Days 06/18/16 [Rx] Acetaminophen [Tylenol] 650 mg PO Q4H PRN 06/29/16 [History] LevETIRAcetam [Keppra] 1,000 mg PO QAM #20 tablet 07/01/16 [Rx] LevETIRAcetam [Keppra] 500 mg PO QPM 20 Days 07/01/16 [Rx] Memantine HCl [Namenda Xr] 21 mg PO QAM 07/15/16 [History] Lactobacillus [Culturelle] 1 each PO BID cap.sprink 07/19/16 [Rx] Vancomycin Oral Soln [Vancocin] 250 mg PO QID 12 Days 07/19/16 [Rx] Allergies/Adverse Reactions: Allergies No Known Allergies Allergy (Verified 06/16/16 16:02) Procedures/tests Complete & Pending: Microbiology 07/16/16 01:20 Stool Culture - Final Stool Leukocyte Esterase (LILIBETH) - Final 07/16/16 09:14 Blood Culture - Preliminary Peripheral Venipuncture No growth. 07/16/16 09:10 Blood Culture - Preliminary Peripheral Venipuncture No growth. 07/15/16 19:50 Gram Stain - Final Cerebral Spinal Fluid CSF Culture - Final 07/16/16 02:06 Blood Culture - Preliminary Peripheral Venipuncture No growth. 07/16/16 03:51 Blood Culture - Preliminary Peripheral Venipuncture No growth. 07/15/16 20:55 Influenza Types A,B Antigen (LILIBETH) - Final Nasopharyngeal ITS Impressions Chest X-Ray 07/15/16 13:18 IMPRESSION: No evidence of acute cardiopulmonary disease. D/ / Sg Gutierrez MD / Sg Gutierrez MD Interpreting Provider: Sg Gutierrez MD Head CT 07/15/16 13:18 IMPRESSION: No acute intracranial abnormality. D/ / Sg Gutierrez MD / Sg Gutierrez MD Interpreting Provider: Sg Gutierrez MD Lumbar Puncture Fluoroscopy 07/15/16 16:20 IMPRESSION: Successful fluoroscopic-guided lumbar puncture. Of note, the patient moved during collection of the 2nd and 3rd vial, resulting in blood tinged CSF. The collection was terminated after more blood was observed in the tubing during collection of the 4th vial. Findings were discussed with Dr. Nix at approximately 7:30 p.m. on 07/15/2016. D/ / Rosie Peralta MD / Rosie Peralta MD Interpreting Provider: Rosie Peralta MD X-Ray 07/16/16 03:02 IMPRESSION: 1. Nonobstructive bowel gas pattern. 2. Gas-filled small bowel in the left hemiabdomen without significant distention. Findings are nonspecific but can be seen in the setting of mild enteritis. D/ / 07/16/2016 14:31:41 Rosie Peralta MD / [email or web address] Interpreting Provider: Rosie Peralta MD Date of admission: 07/15/16 22:16 Primary care physician: Cristiana Briceño CNP Consults: 07/16/16 07:36 Consult to Merchant Tailor [CONS] Routine Reason for SW Consult: not sure if from ECF or home. Will need social serivices. 07/16/16 10:09 Consult to Nutrition [CONS] Routine Comment: Consulting Provider: NUTRITION Reason for Dietary Consult: MST Score 07/19/16 10:16 Consult to Physical Therapy [CONS] Routine Comment: Evaluate, develop and implement POC Consult to Merchant Tailor [CONS] Routine Reason for SW Consult: Discharge planning Discharging clinician: Chelita Trinidad Anticipated date of discharge: 07/19/16 - Patient Status Disposition: Transfer Other Condition: Good Functional capacity at discharge: uses cane/walker Overall status at discharge: patient is progressing back to baseline - Discharge Instructions Follow Up With: Cristiana Briceño CNP [Primary Care Provider] - 07/26/16 1:15 pm - Diet and Activity Activity: as per physical therapy Diet: advance to your usual diet Interval History: 76-year-old female with a past history significant for dementia, was brought to the emergency department with history of altered mental status, and diarrhea since 2016. CT head was negative for acute lesions, CSF study was negative for meningitis. She was noted to have acute kidney injury which improved with the intravenous fluid administration. Her stool study was positive for Clostridium difficile infection, and had significant leukocytosis with white cell count of 17. She was treated with oral vancomycin, with clinical improvement. Pt was on long-term prophylactic Bactrim for recurrent urinary tract infections. I have discussed with her urologist Dr. Massey, who is agreeable to discontinue Bactrim. She was supposed to have follow-up outpatient CT scan of the abdomen, which could not be done as she was admitted to the hospital. This test need to be re-arranged. Pt is clinically stable at discharge time. Hospital course: Ms. Suh is a 76 year old female - Time Spent with Patient Total time spent providing and/or coordinating discharge services: - Constitutional Vitals: Temp Pulse Resp BP Pulse Ox 97.6 F 60 16 119/53 97 07/19/16 11:50 07/19/16 12:00 07/19/16 11:50 07/19/16 11:50 07/19/16 11:50 Exam: General: Not in acute distress at the time of my evaluation Lungs: Clear to auscultation Cardiac: Regular rate and rhythm. No significant murmurs Abdomen: Soft, non tender. Bowel sounds present Neurological: No gross localizing deficits Psych: Not aggressive or agitated Extremities: no significant leg edema Skin: No generalized rash
--- NOTE | 2016-07-19 17:33 | Physician Discharge Referral ---
ExtendedCare Referral Info Transfer To: signature Provider in Charge: Dr Trinidad Provider in Charge after Transfer: Other (director of people at [facility]) - Diagnosis (1) C. difficile diarrhea Priority: Primary Status: Acute (2) Acute kidney injury Priority: Secondary Status: Resolved (3) Acute metabolic encephalopathy Priority: Secondary Status: Acute (4) Dementia Priority: Secondary Status: Chronic Prognosis: Good - Transfer Medications Prescriptions: Vancomycin Oral Soln [Vancocin] 250 mg PO QID 12 Days Home Medications: Cholecalciferol (D-3) [Vitamin D] 2,000 unit PO DAILY 03/12/16 [History] Citalopram Hydrobromide [Citalopram HBr] 20 mg PO DAILY 03/12/16 [History] Donepezil [Aricept] 10 mg PO HS 03/12/16 [History] Folic Acid 2 mg PO DAILY 03/12/16 [History] Lisinopril-HCTZ 10-12.5 [Prinzide 10-12.5] 1 tab PO DAILY 03/12/16 [History] Pravastatin Sodium [Pravachol] 20 mg PO HS 03/12/16 [History] Multivit-Min/Iron/Folic/Lutein [Centrum Silver Women Tablet] 1 tab PO DAILY 05/22 [History] Aspirin Enteric Coated [Aspirin EC] 81 mg PO DAILY 30 Days 06/18/16 [Rx] Acetaminophen [Tylenol] 650 mg PO Q4H PRN 06/29/16 [History] LevETIRAcetam [Keppra] 1,000 mg PO QAM #20 tablet 07/01/16 [Rx] LevETIRAcetam [Keppra] 500 mg PO QPM 20 Days 07/01/16 [Rx] Memantine HCl [Namenda Xr] 21 mg PO QAM 07/15/16 [History] Lactobacillus [Culturelle] 1 each PO BID cap.sprink 07/19/16 [Rx] Vancomycin Oral Soln [Vancocin] 250 mg PO QID 12 Days 07/19/16 [Rx] Allergies/Adverse Reactions: Allergies No Known Allergies Allergy (Verified 06/16/16 16:02) - Respiratory Orders None Smoking Cessation: Smoking cessation has been advised. For more information, call the [place] Tobacco Quit Line at 9-022-IYKC-NOW. - Ancillary Orders May use pressure relief devices daily prn - Advance Directives Living Will: No Code Status: Full Code - Mobility Orders Ambulate - Rehabiliation Orders Rehab Potential: Good - Treatments Skin tear care topically daily PRN per policy - Diet Orders Regular CERTIFICATION: I certify that the transfer of the above named patient to an Extended Care Facility is necessary for the continuing treatment of the diagnosis listed. The above information is true and accurate reflection of patient's current condition. Confidential - Redisclosure prohibited without a patient's written consent.
[2016-07-19 17:47] VITALS: BP 129/73
[2016-07-19] MEDS ORDERED: Lactobacillus 1 EACH CAP.SPRINK PO SCH (21:00)
== END 2016-07-19 21:20 | disposition other institution (70) | DRG 871 ==
LOC: EMEROO 12:46 → 2NNU 22:16 → SUATTDRO 22:16 → 2NNU 23:33
PROVIDERS: ADMIT Internal Medicine; ATTEND Internal Medicine

== ENCOUNTER 2016-08-04 11:57 | Observation (INO) ==
--- NOTE | 2016-08-04 12:14 | Emergency Department Note ---
Disposition Clinical Impression: Dementia, Confusion, Weakness, Hypotension, Near syncope, Clostridium difficile colitis, Abnormal urinalysis Disposition: Admitted As Inpatient Referrals: NO,PCP [Non-Partnered Physician] - Forms: ED Satisfaction Letter General Adult HPI - General Chief complaint: ED Weakness Stated complaint: generalized weakness, recent c-diff Time Seen by Provider: 08/04/16 12:14 - History of Present Illness HPI Narrative: 76-year-old female comes in from home, the patient's daughter lives with her and reports the patient has been progressively confused worse last evening. She has a known history of dementia and wanders at night. Last night she became increasingly agitated. Today she became weaker and weaker so her daughter called a friend who is a nurse. They noticed the patient was unable to walk and while they were holding her she essentially collapsed and was unable to stand up. There is no history of an seizure-like activity. No trauma. The patient is unable to give a history. The family deny any reports of chest pain shortness of breath vomiting or diarrhea. She reportedly had a recent C. difficile infection. There is no history of fever or headache. No history of difficulty moving the arms or legs independently or unilateral arm or leg weakness or numbness no dysarthria. The patient started having difficulty late last night with pacing and increased agitation throwing her clothes around and speaking incoherently. He patient is not known to be diabetic. She does not take blood thinners. Onset (ago): hour(s) - Related Data Home Medications Medication Instructions Recorded Confirmed Cholecalciferol (D-3) [Vitamin D] 2,000 unit PO DAILY 03/12/16 07/15/16 Citalopram Hydrobromide 20 mg PO DAILY 03/12/16 08/04/16 [Citalopram HBr] Donepezil [Aricept] 10 mg PO HS 03/12/16 08/04/16 Folic Acid 2 mg PO DAILY 03/12/16 07/15/16 Lisinopril-HCTZ 10-12.5 [Prinzide 1 tab PO DAILY 03/12/16 08/04/16 10-12.5] Pravastatin Sodium [Pravachol] 20 mg PO HS 03/12/16 08/04/16 Multivit-Min/Iron/Folic/Lutein 1 tab PO DAILY 06/16/16 07/15/16 [Centrum Silver Women Tablet] Acetaminophen [Tylenol] 650 mg PO Q4H PRN 06/29/16 07/15/16 Memantine HCl [Namenda Xr] 21 mg PO QAM 07/15/16 08/04/16 TraZODone 50 mg PO HS 08/04/16 08/04/16 Previous Rx's Medication Instructions Recorded Aspirin Enteric Coated [Aspirin EC] 81 mg PO DAILY 30 Days 06/18/16 LevETIRAcetam [Keppra] 1,000 mg PO QAM #20 tablet 07/01/16 LevETIRAcetam [Keppra] 500 mg PO QPM 20 Days 07/01/16 Lactobacillus [Culturelle] 1 each PO BID [email or web address] 07/19/16 Vancomycin Oral Soln [Vancocin] 250 mg PO QID 12 Days 07/19/16 Allergies Allergy/AdvReac Type Severity Reaction Status Date / Time No Known Allergies Allergy Verified 06/16/16 16:02 All systems ED: reviewed and negative except as stated. Past Medical History - Past Medical History Medical history: Reports: arthritis, dementia, GERD, hyperlipidemia, hypertension, osteoporosis, syncope, TIA, other Surgical history: Reports: other Psychiatric history: Reports: anxiety, depression, other - Social History Smoking Status: Never smoker Smokeless Tobacco Status: No Alcohol use: Reports: none Drug use: Reports: none Physical Exam - General Limitations: altered mental status General appearance: alert, in no apparent distress, other (Age-appropriate female sitting upright on the gurney, she is resting with her eyes closed occasionally follows commands properly, she speaks incoherently.) - Head Head exam: atraumatic, normocephalic, normal inspection - Eye Eye exam: Present: normal appearance, PERRL, EOMI. Absent: scleral icterus, conjunctival injection, miosis, mydriasis - ENT ENT exam: normal exam, normal oropharynx, mucous membranes moist, TM's normal bilaterally, normal external ear exam - Neck Neck exam: Present: normal inspection, full ROM, trachea midline. Absent: tenderness - Chest Chest inspection: Present: symmetric chest wall rise. Absent: tenderness - Respiratory Respiratory exam: Present: normal lung sounds bilaterally. Absent: respiratory distress - Cardiovascular Cardiovascular exam: Present: regular rate, normal rhythm, normal heart sounds - Abdominal Exam Abdominal exam: Present: soft, Non-Tender. Absent: tenderness, distention, guarding, rebound, rigidity, trauma - Extremities Exam Extremities exam: Present: normal inspection, full ROM, normal capillary refill. Absent: tenderness, pedal edema, joint swelling, calf tenderness - Expanded Lower Extremity Exam Neurovascular/Tendon exam: Absent: pulse deficit, motor deficit, sensory deficit , tendon deficit - Back Exam Back exam: Present: normal inspection, full ROM. Absent: tenderness, CVA tenderness (R), CVA tenderness (L), vertebral tenderness - Neurological Exam Neurological exam: Present: alert, CN II-XII intact. Absent: oriented X3, motor sensory deficit - Psychiatric Psychiatric exam: Present: flat affect - Skin Skin exam: Present: warm, dry, intact, normal color. Absent: rash, cyanosis, diaphoresis, erythema, pallor, mottled Course Vital Signs Temperature 97.8 F 08/04/16 12:00 Pulse Rate 83 08/04/16 12:00 Respiratory Rate 16 08/04/16 12:00 Blood Pressure 87/68 08/04/16 12:00 O2 Sat by Pulse Oximetry 99 08/04/16 12:00 Temperature 97.8 F 08/04/16 12:00 Pulse Rate 82 08/04/16 14:51 Respiratory Rate 16 08/04/16 14:51 Blood Pressure 92/49 08/04/16 14:51 O2 Sat by Pulse Oximetry 96 08/04/16 14:51 Oxygen Delivery Oxygen Delivery Nasal Cannula Medical Decision Making - [facility] Narrative Medical decision making narrative: The patient was evaluated in the ED, CT scan head negative, there is no evidence of physical trauma, chest x-ray negative. She does have an elevated white blood cell count and has been somewhat hypotensive with an abnormal urinalysis as well as positive C. difficile markers. The patient was given IV fluids, her lactate was negative but CRP was high suggestive of inflammation or infection. The patient displays no evidence of nuchal rigidity or an neurologic defects and has no skin rash. I do not highly suspect meningitis.. The family reports they feel she may need a mcfp. Given her acute confusion, hypotension, and possible UTI and/or positive C. difficile tox, I think it would be appropriate to admit the patient. She was given IV fluids and ciprofloxacin in the ED. I have consulted with the hospitalist [facility] has accepted the patient to her care. The patient is not tachycardic tachypneic and has no fever. It appears that she does not meet Sirs/sepsis criteria however fluid therapy and antibiotics were initiated initially to cover for potential sepsis/UTI. Her C. difficile toxin may be residual from previous. She did have a loose stool here but no an diarrhea. The patient's blood pressure went up to 103/59. She appears to be stable. The patient is pending admission. - Lab Data Lab results reviewed: Yes I reviewed the patient's lab results. Result diagrams: 08/04/16 13:59 08/04/16 13:59 Lab Results 08/04/16 08/04/16 08/04/16 Range/Units 13:02 13:12 13:12 WBC (4.3-11.1) K/mcL RBC (3.82-4.97) M/mcL Hgb (11.5-15.4) g/dL Hct (35.3-44.9) % MCV (83.0-100.0) fL MCH (28.0-33.3) pg MCHC (31.6-35.5) g/dL RDW (11.5-14.5) % Plt Count (140-400) K/mcL MPV (9.4-12.4) fL Immature Gran % (0-4) % Seg Neutrophils % % Lymphocytes % % Monocytes % % Eosinophils % % Basophils % % Neutrophils # (1.6-8.9) K/mcL Lymphocytes # (0.6-4.6) K/mcL Monocytes # (0.0-1.3) K/mcL Eosinophils # (0.0-0.6) K/mcL Basophils # (0.0-0.2) K/mcL Sodium (136-145) mEq/L Potassium (3.5-4.5) mEq/L Chloride (98-109) mEq/L Carbon Dioxide (19-29) mEq/L BUN (7-20) mg/dL Creatinine (0.57-1.11) mg/dL Est GFR ( Amer) (> 60) Est GFR (Non-Af Amer) (> 60) BUN/Creatinine Ratio (6-26) Glucose (70-99) mg/dL Calculated Osmolality (280-300) Lactic Acid (0.5-2.2) mmol/L Calcium (8.6-10.8) mg/dL Magnesium (1.6-2.6) mg/dL Total Bilirubin (0.2-1.2) mg/dL AST (5-34) Units/L ALT (0-55) Units/L Alkaline Phosphatase (38-126) Units/L Ammonia (18-72) mcmol/L Creatine Kinase (29-168) Units/L Troponin I (0-0.03) ng/mL C-Reactive Protein (Less than 5) mg/L Serum Total Protein (6.0-8.3) g/dL Albumin (3.5-5.0) g/dL Globulin (2.4-3.5) g/dL Albumin/Globulin Ratio (1.1-2.2) TSH (0.350-4.840) mcIU/mL Urine Color Yellow (Yellow) Urine Clarity Clear (Clear) Urine pH 6.0 (5.0-8.0) pH Units Ur Specific Portia 1.025 (1.010-1.025) Urine Protein Negative (Neg-Trace) mg/dL Urine Glucose (UA) Normal (Normal) mg/dL Urine Ketones Negative (Negative) mg/dL Urine Blood Negative (Negative) Urine Nitrite Positive A (Negative) Urine Bilirubin Negative (Negative) Urine Urobilinogen Normal (Normal) mg/dL Ur Leukocyte Esterase Negative (Negative) Urine Microscopic RBC 0-3 (0-3) per hpf Urine Microscopic WBC 5-15 H (0-3) per hpf Ur Squamous Epith Cells Many H (None-Few) per lpf Urine Bacteria Many H (None-Few) per hpf Hyaline Casts None Seen (None-Few) per lpf Ur Culture Indicated? YES A (NO) Salicylates (15-30) mg/dL Urine Opiates Screen Negative (Wgrqko=291) ng/mL Acetaminophen (10-30) mcg/mL Ur Barbiturates Screen Negative (Wlugei=531) ng/mL Ur Phencyclidine Scrn Negative (Cutoff=25) ng/mL Ur Amphetamines Screen Negative (Bcvbex=5533) ng/mL U Benzodiazepines Scrn Negative (Ngnjiz=933) ng/mL Urine Cocaine Screen Negative (Cutoff= 300) ng/mL U Marijuana (THC) Screen Negative (Cutoff = 50) ng/mL C. difficile Tox (PCR) Positive (Negative) 0108/04/16 08/04/16 Range/Units 13:59 13:59 13:59 WBC 13.6 H (4.3-11.1) K/mcL RBC 3.91 (3.82-4.97) M/mcL Hgb 12.2 (11.5-15.4) g/dL Hct 37.3 (35.3-44.9) % MCV 95.4 (83.0-100.0) fL MCH 31.2 (28.0-33.3) pg MCHC 32.7 (31.6-35.5) g/dL RDW 13.6 (11.5-14.5) % Plt Count 309 (140-400) K/mcL MPV 9.0 L (9.4-12.4) fL Immature Gran % 0.4 (0-4) % Seg Neutrophils % 79.7 % Lymphocytes % 8.5 % Monocytes % 11.0 % Eosinophils % 0.1 % Basophils % 0.3 % Neutrophils # 10.9 H (1.6-8.9) K/mcL Lymphocytes # 1.2 (0.6-4.6) K/mcL Monocytes # 1.5 H (0.0-1.3) K/mcL Eosinophils # 0.0 (0.0-0.6) K/mcL Basophils # 0.0 (0.0-0.2) K/mcL Sodium 137 (136-145) mEq/L Potassium 3.8 (3.5-4.5) mEq/L Chloride 101 (98-109) mEq/L Carbon Dioxide 25 (19-29) mEq/L BUN 19 (7-20) mg/dL Creatinine 1.00 (0.57-1.11) mg/dL Est GFR ( Amer) > 60 (> 60) Est GFR (Non-Af Amer) 54 L (> 60) BUN/Creatinine Ratio 19 (6-26) Glucose 170 H (70-99) mg/dL Calculated Osmolality 290 (280-300) Lactic Acid 1.5 (0.5-2.2) mmol/L Calcium 9.4 (8.6-10.8) mg/dL Magnesium 1.6 (1.6-2.6) mg/dL Total Bilirubin 1.0 (0.2-1.2) mg/dL AST 15 (5-34) Units/L ALT 17 (0-55) Units/L Alkaline Phosphatase 84 (38-126) Units/L Ammonia (18-72) mcmol/L Creatine Kinase 26 L (29-168) Units/L Troponin I (0-0.03) ng/mL C-Reactive Protein (Less than 5) mg/L Serum Total Protein 7.0 (6.0-8.3) g/dL Albumin 3.5 (3.5-5.0) g/dL Globulin 3.5 (2.4-3.5) g/dL Albumin/Globulin Ratio 1.0 L (1.1-2.2) TSH 1.233 (0.350-4.840) mcIU/mL Urine Color (Yellow) Urine Clarity (Clear) Urine pH (5.0-8.0) pH Units Ur Specific Portia (1.010-1.025) Urine Protein (Neg-Trace) mg/dL Urine Glucose (UA) (Normal) mg/dL Urine Ketones (Negative) mg/dL Urine Blood (Negative) Urine Nitrite (Negative) Urine Bilirubin (Negative) Urine Urobilinogen (Normal) mg/dL Ur Leukocyte Esterase (Negative) Urine Microscopic RBC (0-3) per hpf Urine Microscopic WBC (0-3) per hpf Ur Squamous Epith Cells (None-Few) per lpf Urine Bacteria (None-Few) per hpf Hyaline Casts (None-Few) per lpf Ur Culture Indicated? (NO) Salicylates < 5.0 L (15-30) mg/dL Urine Opiates Screen (Hycrza=509) ng/mL Acetaminophen < 1.0 L (10-30) mcg/mL Ur Barbiturates Screen (Ulmsnd=441) ng/mL Ur Phencyclidine Scrn (Cutoff=25) ng/mL Ur Amphetamines Screen (Ygvumh=0547) ng/mL U Benzodiazepines Scrn (Kxmypl=828) ng/mL Urine Cocaine Screen (Cutoff= 300) ng/mL U Marijuana (THC) Screen (Cutoff = 50) ng/mL C. difficile Tox (PCR) (Negative) 08/04/16 08/04/16 08/04/16 Range/Units 13:59 13:59 13:59 WBC (4.3-11.1) K/mcL RBC (3.82-4.97) M/mcL Hgb (11.5-15.4) g/dL Hct (35.3-44.9) % MCV (83.0-100.0) fL MCH (28.0-33.3) pg MCHC (31.6-35.5) g/dL RDW (11.5-14.5) % Plt Count (140-400) K/mcL MPV (9.4-12.4) fL Immature Gran % (0-4) % Seg Neutrophils % % Lymphocytes % % Monocytes % % Eosinophils % % Basophils % % Neutrophils # (1.6-8.9) K/mcL Lymphocytes # (0.6-4.6) K/mcL Monocytes # (0.0-1.3) K/mcL Eosinophils # (0.0-0.6) K/mcL Basophils # (0.0-0.2) K/mcL Sodium (136-145) mEq/L Potassium (3.5-4.5) mEq/L Chloride (98-109) mEq/L Carbon Dioxide (19-29) mEq/L BUN (7-20) mg/dL Creatinine (0.57-1.11) mg/dL Est GFR ( Amer) (> 60) Est GFR (Non-Af Amer) (> 60) BUN/Creatinine Ratio (6-26) Glucose (70-99) mg/dL Calculated Osmolality (280-300) Lactic Acid (0.5-2.2) mmol/L Calcium (8.6-10.8) mg/dL Magnesium (1.6-2.6) mg/dL Total Bilirubin (0.2-1.2) mg/dL AST (5-34) Units/L ALT (0-55) Units/L Alkaline Phosphatase (38-126) Units/L Ammonia 10 L (18-72) mcmol/L Creatine Kinase (29-168) Units/L Troponin I 0.01 (0-0.03) ng/mL C-Reactive Protein 92 H (Less than 5) mg/L Serum Total Protein (6.0-8.3) g/dL Albumin (3.5-5.0) g/dL Globulin (2.4-3.5) g/dL Albumin/Globulin Ratio (1.1-2.2) TSH (0.350-4.840) mcIU/mL Urine Color (Yellow) Urine Clarity (Clear) Urine pH (5.0-8.0) pH Units Ur Specific Portia (1.010-1.025) Urine Protein (Neg-Trace) mg/dL Urine Glucose (UA) (Normal) mg/dL Urine Ketones (Negative) mg/dL Urine Blood (Negative) Urine Nitrite (Negative) Urine Bilirubin (Negative) Urine Urobilinogen (Normal) mg/dL Ur Leukocyte Esterase (Negative) Urine Microscopic RBC (0-3) per hpf Urine Microscopic WBC (0-3) per hpf Ur Squamous Epith Cells (None-Few) per lpf Urine Bacteria (None-Few) per hpf Hyaline Casts (None-Few) per lpf Ur Culture Indicated? (NO) Salicylates (15-30) mg/dL Urine Opiates Screen (Ttmoba=855) ng/mL Acetaminophen (10-30) mcg/mL Ur Barbiturates Screen (Glznyh=317) ng/mL Ur Phencyclidine Scrn (Cutoff=25) ng/mL Ur Amphetamines Screen (Ufpbvc=6925) ng/mL U Benzodiazepines Scrn (Cqxznp=175) ng/mL Urine Cocaine Screen (Cutoff= 300) ng/mL U Marijuana (THC) Screen (Cutoff = 50) ng/mL C. difficile Tox (PCR) (Negative) - Radiology Data Radiology results reviewed: Yes I reviewed the patient's radiology results.
[2016-08-04] MEDS: 0.9 % Sodium Chloride 1,000 ML IVC ONE ×2 (12:15→15:13)
[2016-08-04 13:22] LABS: Bilirubin,Urine Negative (Negative); Blood,Urine Negative (Negative); Clarity,Urine Clear (Clear); Color,Urine Yellow (Yellow); Glucose,Urine (UA) Normal (Normal); Ketones,Urine Negative (Negative); Leukocyte Esterase,Urine Negative (Negative); Nitrite,Urine Positive (Negative); Protein,Urine Negative (Neg-Trace); Specific Gravity,Urine 1.025 (1.010-1.025); Urobilinogen,Urine Normal (Normal)
[2016-08-04 13:27] LABS: Amphetamine Screen,Urine Negative ng/mL (Cutoff=1000); Barbiturate Screen,Urine Negative ng/mL (Cutoff=200); Benzodiazepines Screen,Urine Negative ng/mL (Cutoff=200); Cannabinoid Screen,Urine Negative ng/mL (Cutoff = 50); Cocaine Screen,Urine Negative ng/mL (Cutoff= 300); Opiate Screen,Urine Negative ng/mL (Cutoff=300); Phencyclidine Screen,Urine Negative ng/mL (Cutoff=25)
[2016-08-04 13:30] LABS: Bacteria,Urine Many per hpf (None-Few); Hyaline Casts,Urine None Seen per lpf (None-Few); RBC,Urine 0-3 per hpf (0-3); Squamous Epithelial Cell,Urine Many per lpf (None-Few)
[2016-08-04 14:13] LABS: Basophils % 0.3 %; Eosinophils % 0.1 %; Hematocrit 37.3 % (35.3-44.9); Hemoglobin 12.2 g/dL (11.5-15.4); Immature Granulocytes % 0.4 % (0-4); Lymphocytes # 1.2 K/mcL (0.6-4.6); Lymphocytes % 8.5 %; Mean Corpuscular HGB Conc 32.7 g/dL (31.6-35.5); Mean Corpuscular Hemoglobin 31.2 pg (28.0-33.3); Mean Corpuscular Volume 95.4 fL (83.0-100.0); Monocytes # 1.5 K/mcL (0.0-1.3); Neutrophils # 10.9 K/mcL (1.6-8.9); Platelet Count 309 K/mcL (140-400); Red Blood Count 3.91 M/mcL (3.82-4.97); Red Cell Distribution Width 13.6 % (11.5-14.5); Segmented Neutrophils % 79.7 %
[2016-08-04 14:30] LABS: Alanine Aminotransferase 17 Units/L (0-55); Albumin 3.5 g/dL (3.5-5.0); Alkaline Phosphatase 84 Units/L (38-126); Aspartate Amino Transferase 15 Units/L (5-34); BUN/Creatinine Ratio 19 (6-26); Blood Urea Nitrogen 19 mg/dL (7-20); Calcium 9.4 mg/dL (8.6-10.8); Carbon Dioxide 25 mEq/L (19-29); Creatine Kinase 26 Units/L (29-168); Globulin 3.5 g/dL (2.4-3.5); Glucose 170 mg/dL (70-99); Magnesium 1.6 mg/dL (1.6-2.6); eGFR For African Americans > 60 (> 60); eGFR For Non-African Americans 54 (> 60)
[2016-08-04] MEDS ORDERED: 0.9 % Sodium Chloride 1,000 ML ONE (14:58)
[2016-08-04 15:20] LABS: Chloride 101 mEq/L (98-109); Osmolality,Calculated 290 (280-300); Potassium 3.8 mEq/L (3.5-4.5); Sodium 137 mEq/L (136-145)
[2016-08-04 15:21] LABS: Acetaminophen < 1.0 mcg/mL (10-30); Salicylate < 5.0 mg/dL (15-30)
[2016-08-04] MEDS ORDERED: 0.9 % Sodium Chloride 1,000 ML IVC ONE (15:26)
[2016-08-04 15:41] LABS: Thyroid Stimulating Hormone 1.233 mcIU/mL (0.350-4.840)
[2016-08-04] MEDS ORDERED: Ibuprofen 400 MG TABLET PO PRN (20:16)
[2016-08-04] MEDS ORDERED: Naloxone 0.4 MG/ML INJ IVP PRN (20:16)
[2016-08-04] MEDS ORDERED: 0.9 % Sodium Chloride 1,000 ML IVC SCH (20:30)
--- NOTE | 2016-08-04 20:41 | Internal Med History&Physical ---
Date of Encounter: 08/05/16 Time of Encounter: 20:34 Assessment and Plan (1) C. difficile diarrhea Current visit: No Status: Acute Patient had recent previous infection with c.diff and was on oral vancomycin. She is having diarrhea with positive c.diff toxin and elevated WBC count. It appears she has failed treatment and will treat with both IV Flagyl and PO vanc. PICC team consulted for PICC placement in anticipation of need for IV antibiotics Contact precautions. (2) Weakness Current visit: Yes Status: Acute Family reported patient had generalized weakness today and they had difficulty getting her to stand up and walk. On exam, patient has equal strength in BUE and BLE, no focal weakness. CT of head with no acute abnormality. UA positive for UTI and patient with diarrhea positive for c.Diff. Will treat her infections and assess for improvement in her weakness and mental status. (3) Dehydration Current visit: No Status: Acute Patient with diarrhea and some hypotension with blood pressure in 90s systolic in ED. Patient given fluid boluses and blood pressure has improved. Will give gentle fluid hydration with 0.9NS at 75mL/hr (4) Dementia Current visit: Yes Status: Acute Qualifiers: Dementia type: Alzheimer's disease Alzheimer's disease onset: unspecified onset Dementia behavioral disturbance: without behavioral disturbance Qualified Code(s): G30.9 - Alzheimer's disease, unspecified; F02.80 - Dementia in other diseases classified elsewhere without behavioral disturbance (5) Altered mental status Current visit: No Status: Acute Patient oriented to person only. She mumbles and laughs to herself and occasionally reaches in front of her for things that aren't there. She has baseline dementia, but this is reportedly worse than her baseline. CT of head negative for acute abnormality. CXR with no acute cardiopulmonary process. She is satting 96-97% on 2L She has been found to have a UTI and c.diff diarrhea. Will treat her infections and monitor for improvement in her mental status. Speech Therapy consult for swallow study. Social work consult for discharge planning PT/OT consults. Qualifiers: Altered mental status type: disorientation Qualified Code(s): R41.0 - Disorientation, unspecified (6) Hypertension Current visit: No Status: Chronic Initially patient hypotensive on arrival with Systolic in 90s. Patient given fluids and blood pressure improved to 130s-140s Continue home medications. Qualifiers: Hypertension type: essential hypertension Qualified Code(s): I10 - Essential (primary) hypertension (7) Seizure Current visit: No Status: Chronic Continue home dose of Keppra. (8) DVT prophylaxis Current visit: No Status: Acute Ambulate with assistance anti-embolic stockings heparin 5,000u SQ BID (9) UTI (urinary tract infection) Current visit: Yes Status: Acute Patient's UA concerning for infection though may be contaminated. ED initiated Cipro. Await culture results. Qualifiers: Urinary tract infection type: acute cystitis Hematuria presence: without hematuria Qualified Code(s): N30.00 - Acute cystitis without hematuria Internal Medicine - H&P: HPI Chief complaint: weakness Admitted From: Emergency Dept Plans for Post Hospital Care: Home History of present illness: Ms. Suh is a 76 year old female with dementia, HTN, hyperlipidemia, GERD, and recent c.diff infection was brought to the ED from home by her family for increased agitation and weakness. Patient is alert and oriented X 1 and does not answer questions appropriately, so unable to obtain a review of systems. Family is not available. Evaluation in the ED showed elevated WBC count to 13.6 , elevated CRP to 92, CT of the head showed no acute abnormality, and CXR showed no acute cardiopulmonary process. UA was concerning for infection and patient had episode of diarrhea in the ED, and c.diff toxin was positive. She was hypotensive with Blood pressures in 90s systolic. She was given fluids and IV Cipro for her UTI. On exam, the patient is pleasantly confused, keeps her eyes closed and mumbles or laughs to herself, and occasionally reaches for something in front of her that is not there. She does follow some simple commands, and will open her eyes when asked. She is able to tell me her name is Licha, and that she does not have pain, but does not answer any other questions appropriately, if at all. Lungs are clear to auscultation, and heart has regular rate and rhythm. She has equal strength in BUE and BLE. Past Med Surg Social Fam HX - Past Medical History Medical history: arthritis, dementia, GERD, hyperlipidemia, hypertension, osteoporosis, syncope, TIA, other Psychiatric history: anxiety, depression, other - Past Surgical History Surgical History: other - Social History Smoking Status: Never smoker Smokeless Tobacco Status: No Alcohol use: none Drug use: none Current living situation: Home, With Family Internal Medicine - H&P: Meds Cholecalciferol (D-3) [Vitamin D] 2,000 unit PO DAILY 03/12/16 [History] Citalopram Hydrobromide [Citalopram HBr] 20 mg PO DAILY 03/12/16 [History] Donepezil [Aricept] 10 mg PO HS 03/12/16 [History] Folic Acid 2 mg PO DAILY 03/12/16 [History] Lisinopril-HCTZ 10-12.5 [Prinzide 10-12.5] 1 tab PO DAILY 03/12/16 [History] Pravastatin Sodium [Pravachol] 20 mg PO HS 03/12/16 [History] Multivit-Min/Iron/Folic/Lutein [Centrum Silver Women Tablet] 1 tab PO DAILY 05/22 [History] Aspirin Enteric Coated [Aspirin EC] 81 mg PO DAILY 30 Days 06/18/16 [Rx] Acetaminophen [Tylenol] 650 mg PO Q4H PRN 06/29/16 [History] LevETIRAcetam [Keppra] 1,000 mg PO QAM #20 tablet 07/01/16 [Rx] LevETIRAcetam [Keppra] 500 mg PO QPM 20 Days 07/01/16 [Rx] Memantine HCl [Namenda Xr] 21 mg PO QAM 07/15/16 [History] Lactobacillus [Culturelle] 1 each PO BID cap.sprink 07/19/16 [Rx] Vancomycin Oral Soln [Vancocin] 250 mg PO QID 12 Days 07/19/16 [Rx] TraZODone 50 mg PO HS 08/04/16 [History] Allergies No Known Allergies Allergy (Verified 06/16/16 16:02) ROS unobtainable: due to mental status All Systems PM: A 10-system review of systems was performed and is negative for pertinent findings except as documented above in the HPI. - Constitutional Vitals: Temp Pulse Resp BP Pulse Ox 97.9 F 92 16 147/71 96 08/04/16 18:08 08/04/16 18:08 08/04/16 18:08 08/04/16 18:08 08/04/16 18:08 General appearance: Present: A&O X 1, pleasant, no acute distress. Absent: answers questions appropriately - Head Head exam: Present: atraumatic, normocephalic - Eye Eye exam: Present: PERRL, conjuntiva pink, sclera anicteric Pupils: Present: PERRL - Neck Neck exam general surgery: Present: supple, trachea midline. Absent: lymphadenopathy - Respiratory Respiratory exam: Present: CTAB. Absent: accessory muscle use, rales, rhonchi, wheezes - Cardiovascular Cardiovascular exam: Present: RRR, +S1, +S2. Absent: diastolic murmur, gallop, rubs, systolic murmur - GI/Abdominal GI/Abdominal exam: Present: normal bowel sounds, soft, no peritoneal signs. Absent: distended, tenderness - Extremities Exam Extremities exam: Present: warm, radial pulses palpable and symetrical. Absent : calf tenderness, cyanotic, pedal edema - Neurological Exam Neurological exam: Present: strengths equal and symetr throughout. Absent: facial droop, speech deficit - Expanded Neurological Exam Patient oriented to: Present: person Cranial Nerves: EOM's intact PM: Normal, tongue deviation PM: Normal Neuro motor strength exam: LUE: 5, RUE: 5, LLE: 5, RLE: 5 Coma Scale Eye Opening: To Voice Coma Scale Motor Response: Obeys Commands Coma Scale Verbal Response: Incomprehensible Coma Scale Total: 11 - Skin Skin exam: Present: dry, intact Internal Med - H&P Results - Labs CBC & Chem 7: 08/04/16 13:59 08/04/16 13:59 Labs: All Lab Results (24 Hours) 08/04/16 08/04/16 08/04/16 Range/Units 13:02 13:12 13:12 WBC (4.3-11.1) K/mcL RBC (3.82-4.97) M/mcL Hgb (11.5-15.4) g/dL Hct (35.3-44.9) % MCV (83.0-100.0) fL MCH (28.0-33.3) pg MCHC (31.6-35.5) g/dL RDW (11.5-14.5) % Plt Count (140-400) K/mcL MPV (9.4-12.4) fL Immature Gran % (0-4) % Seg Neutrophils % % Lymphocytes % % Monocytes % % Eosinophils % % Basophils % % Neutrophils # (1.6-8.9) K/mcL Lymphocytes # (0.6-4.6) K/mcL Monocytes # (0.0-1.3) K/mcL Eosinophils # (0.0-0.6) K/mcL Basophils # (0.0-0.2) K/mcL Sodium (136-145) mEq/L Potassium (3.5-4.5) mEq/L Chloride (98-109) mEq/L Carbon Dioxide (19-29) mEq/L BUN (7-20) mg/dL Creatinine (0.57-1.11) mg/dL Est GFR ( Amer) (> 60) Est GFR (Non-Af Amer) (> 60) BUN/Creatinine Ratio (6-26) Glucose (70-99) mg/dL Calculated Osmolality (280-300) Lactic Acid (0.5-2.2) mmol/L Calcium (8.6-10.8) mg/dL Magnesium (1.6-2.6) mg/dL Total Bilirubin (0.2-1.2) mg/dL AST (5-34) Units/L ALT (0-55) Units/L Alkaline Phosphatase (38-126) Units/L Ammonia (18-72) mcmol/L Creatine Kinase (29-168) Units/L Troponin I (0-0.03) ng/mL C-Reactive Protein (Less than 5) mg/L Serum Total Protein (6.0-8.3) g/dL Albumin (3.5-5.0) g/dL Globulin (2.4-3.5) g/dL Albumin/Globulin Ratio (1.1-2.2) TSH (0.350-4.840) mcIU/mL Urine Color Yellow (Yellow) Urine Clarity Clear (Clear) Urine pH 6.0 (5.0-8.0) pH Units Ur Specific [place] 1.025 (1.010-1.025) Urine Protein Negative (Neg-Trace) mg/dL Urine Glucose (UA) Normal (Normal) mg/dL Urine Ketones Negative (Negative) mg/dL Urine Blood Negative (Negative) Urine Nitrite Positive A (Negative) Urine Bilirubin Negative (Negative) Urine Urobilinogen Normal (Normal) mg/dL Ur Leukocyte Esterase Negative (Negative) Urine Microscopic RBC 0-3 (0-3) per hpf Urine Microscopic WBC 5-15 H (0-3) per hpf Ur Squamous Epith Cells Many H (None-Few) per lpf Urine Bacteria Many H (None-Few) per hpf Hyaline Casts None Seen (None-Few) per lpf Ur Culture Indicated? YES A (NO) Salicylates (15-30) mg/dL Urine Opiates Screen Negative (Jtmqdx=271) ng/mL Acetaminophen (10-30) mcg/mL Ur Barbiturates Screen Negative (Fcshtj=767) ng/mL Ur Phencyclidine Scrn Negative (Cutoff=25) ng/mL Ur Amphetamines Screen Negative (Mnayfs=4386) ng/mL U Benzodiazepines Scrn Negative (Ptquze=341) ng/mL Urine Cocaine Screen Negative (Cutoff= 300) ng/mL U Marijuana (THC) Screen Negative (Cutoff = 50) ng/mL C. difficile Tox (PCR) Positive (Negative) 08/04/16 08/04/16 08/04/16 Range/Units 13:59 13:59 13:59 WBC 13.6 H (4.3-11.1) K/mcL RBC 3.91 (3.82-4.97) M/mcL Hgb 12.2 (11.5-15.4) g/dL Hct 37.3 (35.3-44.9) % MCV 95.4 (83.0-100.0) fL MCH 31.2 (28.0-33.3) pg MCHC 32.7 (31.6-35.5) g/dL RDW 13.6 (11.5-14.5) % Plt Count 309 (140-400) K/mcL MPV 9.0 L (9.4-12.4) fL Immature Gran % 0.4 (0-4) % Seg Neutrophils % 79.7 % Lymphocytes % 8.5 % Monocytes % 11.0 % Eosinophils % 0.1 % Basophils % 0.3 % Neutrophils # 10.9 H (1.6-8.9) K/mcL Lymphocytes # 1.2 (0.6-4.6) K/mcL Monocytes # 1.5 H (0.0-1.3) K/mcL Eosinophils # 0.0 (0.0-0.6) K/mcL Basophils # 0.0 (0.0-0.2) K/mcL Sodium 137 (136-145) mEq/L Potassium 3.8 (3.5-4.5) mEq/L Chloride 101 (98-109) mEq/L Carbon Dioxide 25 (19-29) mEq/L BUN 19 (7-20) mg/dL Creatinine 1.00 (0.57-1.11) mg/dL Est GFR ( Amer) > 60 (> 60) Est GFR (Non-Af Amer) 54 L (> 60) BUN/Creatinine Ratio 19 (6-26) Glucose 170 H (70-99) mg/dL Calculated Osmolality 290 (280-300) Lactic Acid 1.5 (0.5-2.2) mmol/L Calcium 9.4 (8.6-10.8) mg/dL Magnesium 1.6 (1.6-2.6) mg/dL Total Bilirubin 1.0 (0.2-1.2) mg/dL AST 15 (5-34) Units/L ALT 17 (0-55) Units/L Alkaline Phosphatase 84 (38-126) Units/L Ammonia (18-72) mcmol/L Creatine Kinase 26 L (29-168) Units/L Troponin I (0-0.03) ng/mL C-Reactive Protein (Less than 5) mg/L Serum Total Protein 7.0 (6.0-8.3) g/dL Albumin 3.5 (3.5-5.0) g/dL Globulin 3.5 (2.4-3.5) g/dL Albumin/Globulin Ratio 1.0 L (1.1-2.2) TSH 1.233 (0.350-4.840) mcIU/mL Urine Color (Yellow) Urine Clarity (Clear) Urine pH (5.0-8.0) pH Units Ur Specific [place] (1.010-1.025) Urine Protein (Neg-Trace) mg/dL Urine Glucose (UA) (Normal) mg/dL Urine Ketones (Negative) mg/dL Urine Blood (Negative) Urine Nitrite (Negative) Urine Bilirubin (Negative) Urine Urobilinogen (Normal) mg/dL Ur Leukocyte Esterase (Negative) Urine Microscopic RBC (0-3) per hpf Urine Microscopic WBC (0-3) per hpf Ur Squamous Epith Cells (None-Few) per lpf Urine Bacteria (None-Few) per hpf Hyaline Casts (None-Few) per lpf Ur Culture Indicated? (NO) Salicylates < 5.0 L (15-30) mg/dL Urine Opiates Screen (Zqfpob=830) ng/mL Acetaminophen < 1.0 L (10-30) mcg/mL Ur Barbiturates Screen (Hxewip=897) ng/mL Ur Phencyclidine Scrn (Cutoff=25) ng/mL Ur Amphetamines Screen (Aookzy=4317) ng/mL U Benzodiazepines Scrn (Asspva=452) ng/mL Urine Cocaine Screen (Cutoff= 300) ng/mL U Marijuana (THC) Screen (Cutoff = 50) ng/mL C. difficile Tox (PCR) (Negative) 08/04/16 08/04/16 08/04/16 Range/Units 13:59 13:59 13:59 WBC (4.3-11.1) K/mcL RBC (3.82-4.97) M/mcL Hgb (11.5-15.4) g/dL Hct (35.3-44.9) % MCV (83.0-100.0) fL MCH (28.0-33.3) pg MCHC (31.6-35.5) g/dL RDW (11.5-14.5) % Plt Count (140-400) K/mcL MPV (9.4-12.4) fL Immature Gran % (0-4) % Seg Neutrophils % % Lymphocytes % % Monocytes % % Eosinophils % % Basophils % % Neutrophils # (1.6-8.9) K/mcL Lymphocytes # (0.6-4.6) K/mcL Monocytes # (0.0-1.3) K/mcL Eosinophils # (0.0-0.6) K/mcL Basophils # (0.0-0.2) K/mcL Sodium (136-145) mEq/L Potassium (3.5-4.5) mEq/L Chloride (98-109) mEq/L Carbon Dioxide (19-29) mEq/L BUN (7-20) mg/dL Creatinine (0.57-1.11) mg/dL Est GFR ( Amer) (> 60) Est GFR (Non-Af Amer) (> 60) BUN/Creatinine Ratio (6-26) Glucose (70-99) mg/dL Calculated Osmolality (280-300) Lactic Acid (0.5-2.2) mmol/L Calcium (8.6-10.8) mg/dL Magnesium (1.6-2.6) mg/dL Total Bilirubin (0.2-1.2) mg/dL AST (5-34) Units/L ALT (0-55) Units/L Alkaline Phosphatase (38-126) Units/L Ammonia 10 L (18-72) mcmol/L Creatine Kinase (29-168) Units/L Troponin I 0.01 (0-0.03) ng/mL C-Reactive Protein 92 H (Less than 5) mg/L Serum Total Protein (6.0-8.3) g/dL Albumin (3.5-5.0) g/dL Globulin (2.4-3.5) g/dL Albumin/Globulin Ratio (1.1-2.2) TSH (0.350-4.840) mcIU/mL Urine Color (Yellow) Urine Clarity (Clear) Urine pH (5.0-8.0) pH Units Ur Specific [place] (1.010-1.025) Urine Protein (Neg-Trace) mg/dL Urine Glucose (UA) (Normal) mg/dL Urine Ketones (Negative) mg/dL Urine Blood (Negative) Urine Nitrite (Negative) Urine Bilirubin (Negative) Urine Urobilinogen (Normal) mg/dL Ur Leukocyte Esterase (Negative) Urine Microscopic RBC (0-3) per hpf Urine Microscopic WBC (0-3) per hpf Ur Squamous Epith Cells (None-Few) per lpf Urine Bacteria (None-Few) per hpf Hyaline Casts (None-Few) per lpf Ur Culture Indicated? (NO) Salicylates (15-30) mg/dL Urine Opiates Screen (Hjeuoh=156) ng/mL Acetaminophen (10-30) mcg/mL Ur Barbiturates Screen (Gruqhc=702) ng/mL Ur Phencyclidine Scrn (Cutoff=25) ng/mL Ur Amphetamines Screen (Tnrrry=9667) ng/mL U Benzodiazepines Scrn (Frcepo=812) ng/mL Urine Cocaine Screen (Cutoff= 300) ng/mL U Marijuana (THC) Screen (Cutoff = 50) ng/mL C. difficile Tox (PCR) (Negative)
[2016-08-04] MEDS: Famotidine 20 MG TABLET PO SCH (20:54)
[2016-08-04] MEDS: traZODone 50 MG TABLET PO SCH (20:54)
[2016-08-04] MEDS: Vancomycin Oral Soln 250 MG/2.5 ML UDC PO SCH (23:22)
[2016-08-05 05:45] LABS: Basophils % 0.4 %; Eosinophils % 0.2 %; Hematocrit 35.6 % (35.3-44.9); Hemoglobin 11.7 g/dL (11.5-15.4); Immature Granulocytes % 0.4 % (0-4); Lymphocytes # 1.8 K/mcL (0.6-4.6); Lymphocytes % 16.5 %; Mean Corpuscular HGB Conc 32.9 g/dL (31.6-35.5); Mean Corpuscular Hemoglobin 31.1 pg (28.0-33.3); Mean Corpuscular Volume 94.7 fL (83.0-100.0); Monocytes % 18.4 %; Neutrophils # 7.1 K/mcL (1.6-8.9); Platelet Count 315 K/mcL (140-400); Red Blood Count 3.76 M/mcL (3.82-4.97); Red Cell Distribution Width 13.3 % (11.5-14.5); Segmented Neutrophils % 64.1 %
[2016-08-05] MEDS: levETIRAcetam 250 MG TABLET PO SCH ×3 (05:46→16:52)
[2016-08-05] MEDS: *HR* Heparin 5,000 UNIT/ML VIAL SQ SCH ×2 (05:50→20:25)
[2016-08-05 05:58] LABS: BUN/Creatinine Ratio 16 (6-26); Blood Urea Nitrogen 13 mg/dL (7-20); Calcium 8.7 mg/dL (8.6-10.8); Carbon Dioxide 22 mEq/L (19-29); Chloride 103 mEq/L (98-109); Glucose 129 mg/dL (70-99); Osmolality,Calculated 286 (280-300); Potassium 3.2 mEq/L (3.5-4.5); Sodium 137 mEq/L (136-145); eGFR For African Americans > 60 (> 60); eGFR For Non-African Americans > 60 (> 60)
[2016-08-05 06:30] LABS: Platelet Estimate Normal (Normal); Reactive Lymphocytes Present (Not Present)
[2016-08-05] MEDS: MetroNIDAZOLE 500 MG/100 ML 500 MG/100 ML BAG IVPB SCH ×3 (07:22→18:24)
[2016-08-05 08:34] LABS: Magnesium 1.3 mg/dL (1.6-2.6)
[2016-08-05] MEDS: Famotidine 20 MG TABLET PO SCH ×2 (09:32→16:51)
[2016-08-05] MEDS: NAMENDA 21 MG PO SCH (09:32)
[2016-08-05] MEDS: Lactobacillus 1 EACH CAP.SPRINK PO SCH ×2 (09:32→20:25)
[2016-08-05] MEDS ORDERED: 0.9 % Sodium Chloride 1,000 ML ONE (12:10)
[2016-08-05] MEDS: Vancomycin Oral Soln 250 MG/2.5 ML UDC PO SCH ×4 (12:24→20:24)
[2016-08-05] MEDS ORDERED: Magnesium Sulfate 2 GM in D5% in Water 100 ML IVPB ONE (12:26)
--- NOTE | 2016-08-05 12:30 | Internal Med Progress Note ---
<Adriano Ceron - Last Filed: 08/05/16 12:28> Date of Encounter: 08/05/16 Time of Encounter: 08:20 - Assessment and plan (1) Clostridium difficile colitis Current Visit: Yes Status: Acute Assessment and plan: Patient was treated with course of PO vancomycin. However unsure of compliance so it is unclear if this is treatment failure or not. She has a benign abdominal exam. Hemodynamically stable. Will continue PO vancomycin and IV flagyl with plans to deescalate to a single agent. May consider IV flagyl if she is discharged to [facility] to ensure compliance. Continue IV fluids. Continue to monitor and replete electrolytes as needed. (2) Bacteriuria Current Visit: Yes Status: Acute Assessment and plan: asymptomatic. Will hold off on treating at this time as UA appears contaminated. She is asymptomatic and adding IV antibiotics may worsen current diarrhea. (3) Confusion Current Visit: Yes Status: Acute Assessment and plan: she has baseline severe confusion. Mildly worsened from baseline. However george states she has been like this for last 2 months. May be progression of her disease. However in the setting of hospitalizations and recurrent infections as well. she had an MRI without acute findings in june. she had an LP on 07/15/15 which was normal. currently she is calm. Will attempt to keep her on normal sleep/wake schedule continue namenda. (4) Dementia Current Visit: Yes Status: Acute Assessment and plan: as stated above Qualifiers: Dementia type: Alzheimer's disease Alzheimer's disease onset: unspecified onset Dementia behavioral disturbance: without behavioral disturbance Qualified Code(s): G30.9 - Alzheimer's disease, unspecified; F02.80 - Dementia in other diseases classified elsewhere without behavioral disturbance (5) Dehydration Current Visit: Yes Status: Acute Assessment and plan: continue IV fluids (6) Hypokalemia Current Visit: Yes Status: Acute Assessment and plan: replete (7) Hypomagnesemia Current Visit: Yes Status: Acute Assessment and plan: replete (8) DVT prophylaxis Current Visit: Yes Status: Acute Assessment and plan: SQ heparin - Subjective Interval history: This is a 76 y.o. female with pmh of Alzheimers dementia. She lives at home with her daughter and grandchildren. Per patients daughter the patient has baseline dementia that is quite severe. She dose perform some daily activities such as wash dishes occasionally , however she is quite confused most of the time and requires constant supervision. she had been started on chronic bactri, in june for recurrent UTI. She since developed Cdiff and was treated with oral vancomycin. she was having increased confusion and diarrhea and was brought back to the ED by her daughter. She did test positive for Cdiff and was started on IV flagyl and oral vancomycin. This AM Mrs. Suh is pleasant but quite confused. She is orientated to person only. she denies any pain, discomfort or other complaints at this time. - Constitutional Vitals: Temp Pulse Resp BP Pulse Ox 98.1 F 89 15 91/52 97 08/05/16 12:03 08/05/16 12:03 08/05/16 12:03 08/05/16 12:03 08/05/16 12:03 General appearance: Present: A&O X 1, pleasant, no acute distress. Absent: answers questions appropriately - Head Head exam: Present: atraumatic, normocephalic - Eye Eye exam: Present: PERRL, conjuntiva pink, sclera anicteric Pupils: Present: PERRL - ENT ENT exam: Present: mucous membranes dry - Neck Neck exam general surgery: Present: supple, trachea midline. Absent: lymphadenopathy - Respiratory Respiratory exam: Present: CTAB. Absent: accessory muscle use, rales, rhonchi, wheezes - Cardiovascular Cardiovascular exam: Present: RRR, +S1, +S2. Absent: diastolic murmur, gallop, rubs, systolic murmur - GI/Abdominal GI/Abdominal exam: Present: normal bowel sounds, soft, no peritoneal signs. Absent: distended, tenderness - Extremities Exam Extremities exam: Present: warm, radial pulses palpable and symetrical. Absent : calf tenderness, cyanotic, pedal edema - Skin Skin exam: Present: dry, intact Internal Medicine: Result - Labs CBC & Chem 7: 08/05/16 05:02 08/05/16 05:02 Labs: Short CBC 08/05/16 Range/Units 05:02 WBC 11.1 (4.3-11.1) K/mcL Hgb 11.7 (11.5-15.4) g/dL Hct 35.6 (35.3-44.9) % Plt Count 315 (140-400) K/mcL Neutrophils # 7.1 (1.6-8.9) K/mcL BMP 08/05/16 05:02 Sodium 137 Potassium 3.2 L Chloride 103 Carbon Dioxide 22 BUN 13 Creatinine 0.81 Glucose 129 H Calcium 8.7 Consult Discharge Plan - Plan Referrals: Cristiana Briceño, ESCOBAR [Primary Care Provider] - <BaldomeroAlex Vincent - Last Filed: 08/05/16 17:58> Date of Encounter: 08/05/16 - Assessment and plan (1) Clostridium difficile colitis Current Visit: Yes Status: Acute (2) Dehydration Current Visit: Yes Status: Acute (3) Hypokalemia Current Visit: Yes Status: Acute (4) Hypomagnesemia Current Visit: Yes Status: Acute (5) Dementia Current Visit: Yes Status: Acute Qualifiers: Dementia type: Alzheimer's disease Alzheimer's disease onset: unspecified onset Dementia behavioral disturbance: without behavioral disturbance Qualified Code(s): G30.9 - Alzheimer's disease, unspecified; F02.80 - Dementia in other diseases classified elsewhere without behavioral disturbance (6) Hypertension Current Visit: No Status: Chronic Qualifiers: Hypertension type: essential hypertension Qualified Code(s): I10 - Essential (primary) hypertension (7) Bacteriuria Current Visit: Yes Status: Acute - Constitutional Vitals: Temp Pulse Resp BP Pulse Ox 98.1 F 81 15 109/82 97 08/05/16 17:11 08/05/16 17:11 08/05/16 17:11 08/05/16 17:11 08/05/16 17:11 Internal Medicine: Result - Labs CBC & Chem 7: 08/05/16 05:02 08/05/16 05:02 Labs: Short CBC 08/05/16 Range/Units 05:02 WBC 11.1 (4.3-11.1) K/mcL Hgb 11.7 (11.5-15.4) g/dL Hct 35.6 (35.3-44.9) % Plt Count 315 (140-400) K/mcL Neutrophils # 7.1 (1.6-8.9) K/mcL [facility] 08/05/16 05:02 Sodium 137 Potassium 3.2 L Chloride 103 Carbon Dioxide 22 BUN 13 Creatinine 0.81 Glucose 129 H Calcium 8.7 - Attending Attestation I examined this patient and my medical decision-making was reviewed with the Resident Physician on 08/05/16. I agree with the documented findings, disposition and treatment plan as described except to the extent set forth below. Ms. Suh is currently admitted for acute recurrent C diff colitis and dehydration. She is high risk due to persistent diarrhea and the need for IV medications. Apparently she was inconsistent in taking her medications [facility] the [facility] Ms Suh is resting comfortably at this time. No pain. Continues with some diarrhea. Currently on IV Flagyl and PO Vanc. Exam Alert Comfortable Heart reg No wheeze Abd soft I/P 1. Acute C diff colitis - recurrent 2. Dementia Further diagnoses and plan as above.
--- NOTE | 2016-08-05 16:01 | Electrocardiograph Report ---
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
[2016-08-05] MEDS: traZODone 50 MG TABLET PO SCH (20:25)
[2016-08-06] MEDS ORDERED: Ziprasidone injection 20 MG/ML VIAL IM ONE (00:17)
[2016-08-06] MEDS ORDERED: *HR* LORazepam 2 MG/ML VIAL IVP PRN (00:18)
[2016-08-06] MEDS: MetroNIDAZOLE 500 MG/100 ML 500 MG/100 ML BAG IVPB SCH ×3 (00:39→18:21)
[2016-08-06 04:38] LABS: Basophils % 0.4 %; Eosinophils # 0.3 K/mcL (0.0-0.6); Eosinophils % 3.2 %; Hematocrit 29.4 % (35.3-44.9); Immature Granulocytes % 0.4 % (0-4); Immature Platelets 1.3 % (1.1-6.1); Lymphocytes # 1.9 K/mcL (0.6-4.6); Lymphocytes % 22.2 %; Mean Corpuscular HGB Conc 33.7 g/dL (31.6-35.5); Mean Corpuscular Hemoglobin 31.8 pg (28.0-33.3); Mean Corpuscular Volume 94.5 fL (83.0-100.0); Mean Platelet Volume 8.8 fL (9.4-12.4); Monocytes # 1.3 K/mcL (0.0-1.3); Monocytes % 16.1 %; Neutrophils # 4.8 K/mcL (1.6-8.9); Platelet Count 278 K/mcL (140-400); Red Blood Count 3.11 M/mcL (3.82-4.97); Red Cell Distribution Width 13.2 % (11.5-14.5); Segmented Neutrophils % 57.7 %
[2016-08-06 04:42] LABS: Hemoglobin 9.9 g/dL (11.5-15.4)
[2016-08-06 04:49] LABS: BUN/Creatinine Ratio 19 (6-26); Blood Urea Nitrogen 12 mg/dL (7-20); Calcium 7.3 mg/dL (8.6-10.8); Carbon Dioxide 20 mEq/L (19-29); Chloride 111 mEq/L (98-109); Glucose 93 mg/dL (70-99); Magnesium 1.4 mg/dL (1.6-2.6); Osmolality,Calculated 287 (280-300); Potassium 3.1 mEq/L (3.5-4.5); Sodium 139 mEq/L (136-145); eGFR For African Americans > 60 (> 60); eGFR For Non-African Americans > 60 (> 60)
[2016-08-06] MEDS ORDERED: Magnesium Sulfate 2 GM in D5% in Water 100 ML IVPB ONE (06:17)
[2016-08-06] MEDS: *HR* Heparin 5,000 UNIT/ML VIAL SQ SCH ×2 (06:35→20:36)
[2016-08-06] MEDS: Lactobacillus 1 EACH CAP.SPRINK PO SCH ×2 (08:38→20:37)
[2016-08-06] MEDS: Vancomycin Oral Soln 250 MG/2.5 ML UDC PO SCH ×4 (08:39→20:37)
[2016-08-06] MEDS: NAMENDA 21 MG PO SCH (08:39)
[2016-08-06] MEDS: levETIRAcetam 250 MG TABLET PO SCH (08:39)
[2016-08-06] MEDS: Famotidine 20 MG TABLET PO SCH ×2 (08:39→20:37)
--- NOTE | 2016-08-06 10:23 | Internal Med Progress Note ---
<Carlos Puri P - Last Filed: 08/06/16 17:38> Date of Encounter: 08/06/16 - Constitutional Vitals: Temp Pulse Resp BP Pulse Ox 97.7 F 70 16 116/54 100 08/06/16 11:36 08/06/16 11:36 08/06/16 11:36 08/06/16 11:36 08/06/16 11:36 Internal Medicine: Result - Labs CBC & Chem 7: 08/06/16 04:35 08/06/16 04:35 Labs: Short CBC 08/06/16 Range/Units 04:35 WBC 8.3 (4.3-11.1) K/mcL Hgb 9.9 L D (11.5-15.4) g/dL Hct 29.4 L (35.3-44.9) % Plt Count 278 (140-400) K/mcL Neutrophils # 4.8 (1.6-8.9) K/mcL BMP 08/06/16 04:35 Sodium 139 Potassium 3.1 L Chloride 111 H Carbon Dioxide 20 BUN 12 Creatinine 0.62 Glucose 93 Calcium 7.3 L D Consult Discharge Plan - Plan Instructions: Urinary Tract Infection in Women (DC), Clostridium Difficile Infection (DC), Anemia (GEN) Referrals: Cristiana Briceño, CONTACT [employer] MANUFACTURER [Primary Care Provider] - - Attending Attestation I examined this patient and my medical decision-making was reviewed with the SLUBBER HAND/PA/Advanced Practice Nurse/Resident Physician. I agree with the documented findings, disposition and treatment plan as described except to the extent set forth below. 76/female Admitted with C. difficile colitis. Was recently discharged with the same diagnosis. Not sure with the patient medications at home or not. Compliance is concerned. Will get IV Flagyl to complete a total of 14 days. Reason for IV Flagyl is to make sure that patient gets her treatment. Patient might need a placement. <Adriano Ceron - Last Filed: 08/07/16 10:18> Date of Encounter: 08/07/16 Time of Encounter: 08:05 - Assessment and plan (1) Clostridium difficile colitis Current Visit: Yes Status: Acute Assessment and plan: Patient was treated with course of PO vancomycin. However unsure of compliance so it is unclear if this is treatment failure or not. She has a benign abdominal exam. Hemodynamically stable. Will continue PO vancomycin and IV flagyl with plans to deescalate to a single agent. May consider IV flagyl if she is discharged to ECF to ensure compliance. Continue IV fluids. Continue to monitor and replete electrolytes as needed. (2) Bacteriuria Current Visit: Yes Status: Acute Assessment and plan: asymptomatic. Will hold off on treating at this time as UA appears contaminated. She is asymptomatic and adding IV antibiotics may worsen current diarrhea. (3) Confusion Current Visit: Yes Status: Acute Assessment and plan: she has baseline severe confusion. Mildly worsened from baseline. However tiburciokatherine states she has been like this for last 2 months. May be progression of her disease. However in the setting of hospitalizations and recurrent infections as well. she had an MRI without acute findings in june. she had an LP on 07/15/15 which was normal. currently she is calm. Will attempt to keep her on normal sleep/wake schedule continue namenda. 05/27/17 She had some agitation overnight. Still quite confused today but alert. I think this may be progression of her dementia. Will set up family meeting to discuss possible terminal gauger care and code status. (4) Dementia Current Visit: Yes Status: Acute Assessment and plan: as stated above Qualifiers: Dementia type: Alzheimer's disease Alzheimer's disease onset: unspecified onset Dementia behavioral disturbance: without behavioral disturbance Qualified Code(s): G30.9 - Alzheimer's disease, unspecified; F02.80 - Dementia in other diseases classified elsewhere without behavioral disturbance (5) Dehydration Current Visit: Yes Status: Acute Assessment and plan: continue IV fluids (6) Hypokalemia Current Visit: Yes Status: Acute Assessment and plan: replete (7) Hypomagnesemia Current Visit: Yes Status: Acute Assessment and plan: replete (8) Anemia Current Visit: Yes Status: Acute Assessment and plan: normocytic. no signs of bleeding. Possibly dilutional. check hematinics. Qualifiers: Qualified Code(s): D64.9 - Anemia, unspecified (9) DVT prophylaxis Current Visit: Yes Status: Acute Assessment and plan: SQ heparin - Subjective Interval history: PAtient had some mild agitation overnight, otherwise no major events. This Am she is still confused. However she denies any pain or discomfort. She has no complaints at this time. - Constitutional Vitals: Temp Pulse Resp BP Pulse Ox 97.6 F 90 16 115/62 100 08/06/16 08:04 08/06/16 08:04 08/06/16 08:04 08/06/16 08:04 08/06/16 08:55 General appearance: Present: A&O X 1, pleasant, no acute distress. Absent: answers questions appropriately Exam: General: This is a well-developed well-nourished 76-year-old female she is currently alert and orientated only to self. No change in mental status from yesterday. Lying in bed appears to be comfortable and in no acute distress at this time. HEENT: Normocephalic and atraumatic. Pupils equally round reactive to light and accommodation, moist mucous membranes. Neck supple without mass or thyromegaly. There is no cervical submandibular or supraclavicular lymphadenopathy palpable. Heart: Heart is regular rate and rhythm without murmurs rubs or gallops. Lungs: Clear to auscultation bilaterally. Normal effort. Abdomen: Abdomen is soft, nondistended, nontender to palpation. Musculoskeletal: She does have some mild diffuse muscle atrophy but otherwise no gross deformity noted. Extremities: There is no clubbing, cyanosis or edema. Integument: There is no rashes or lesions noted on my examination. Internal Medicine: Result - Labs CBC & Chem 7: 08/07/16 06:09 08/07/16 06:09 Labs: Short CBC 08/06/16 Range/Units 04:35 WBC 8.3 (4.3-11.1) K/mcL Hgb 9.9 L D (11.5-15.4) g/dL Hct 29.4 L (35.3-44.9) % Plt Count 278 (140-400) K/mcL Neutrophils # 4.8 (1.6-8.9) K/mcL BMP 08/06/16 04:35 Sodium 139 Potassium 3.1 L Chloride 111 H Carbon Dioxide 20 BUN 12 Creatinine 0.62 Glucose 93 Calcium 7.3 L D
[2016-08-06] MEDS ORDERED: levETIRAcetam 500 MG/5 ML UDC PO SCH (20:15)
[2016-08-06] MEDS: traZODone 50 MG TABLET PO SCH (20:37)
[2016-08-07] MEDS: MetroNIDAZOLE 500 MG/100 ML 500 MG/100 ML BAG IVPB SCH ×2 (01:04→08:53)
[2016-08-07] MEDS: *HR* Heparin 5,000 UNIT/ML VIAL SQ SCH (06:08)
[2016-08-07 06:34] LABS: Basophils # 0.1 K/mcL (0.0-0.2); Basophils % 0.9 %; Eosinophils # 0.3 K/mcL (0.0-0.6); Hemoglobin 10.3 g/dL (11.5-15.4); Immature Granulocytes % 0.9 % (0-4); Lymphocytes # 1.6 K/mcL (0.6-4.6); Lymphocytes % 27.7 %; Mean Corpuscular HGB Conc 33.2 g/dL (31.6-35.5); Mean Corpuscular Hemoglobin 31.4 pg (28.0-33.3); Mean Corpuscular Volume 94.5 fL (83.0-100.0); Mean Platelet Volume 9.5 fL (9.4-12.4); Monocytes # 0.9 K/mcL (0.0-1.3); Neutrophils # 2.9 K/mcL (1.6-8.9); Platelet Count 265 K/mcL (140-400); Red Blood Count 3.28 M/mcL (3.82-4.97); Red Cell Distribution Width 13.1 % (11.5-14.5); Segmented Neutrophils % 50.5 %
--- NOTE | 2016-08-07 06:42 | Internal Med Progress Note ---
Date of Encounter: 08/07/16 Time of Encounter: 06:42 - Assessment and plan (1) Clostridium difficile colitis Current Visit: Yes Status: Acute Assessment and plan: Patient was treated with course of PO vancomycin. However unsure of compliance so it is unclear if this is treatment failure or not. She has a benign abdominal exam. Hemodynamically stable. Will continue PO vancomycin and IV flagyl with plans to deescalate to a single agent. May consider IV flagyl if she is discharged to [facility] to ensure compliance. Continue IV fluids. Continue to monitor and replete electrolytes as needed. 08/07/16 Patient is improving. She is having less frequent stools and stools are becoming more formed per nursing staff. Plan is to continue her on IV Flagyl on discharge for a duration of [address] of the abdomen and pelvis did show some thickening of the rectum with some perirectal stranding. Differential would include infectious etiologies however malignancy should be considered as well. Given her active C diff infection would think this is secondary to an infectious etiology. Should have follow up evaluation with possibly repeat imaging and colonoscopy. (2) Bacteriuria Current Visit: Yes Status: Acute Assessment and plan: asymptomatic. Will hold off on treating at this time as UA appears contaminated. She is asymptomatic and adding IV antibiotics may worsen current diarrhea. urine cultures have hafnei alvei. This is a typical GI organism and typically dose not cause disease in patients unless they are immunocomprimised. Also given that urine sample was contaminated I do not feel that this is a true infection. CT did not reveal any signs of urinary obstruction, fistula or abnormality. I think it would be unwise at this point to treat this given likely contaminated urine sample and ongoing Cdiff infection. (3) Confusion Current Visit: Yes Status: Acute Assessment and plan: she has baseline severe confusion. Mildly worsened from baseline. However george states she has been like this for last 2 months. May be progression of her disease. However in the setting of hospitalizations and recurrent infections as well. she had an MRI without acute findings in june. she had an LP on 07/15/15 which was normal. currently she is calm. Will attempt to keep her on normal sleep/wake schedule continue namenda. She had some agitation overnight. Still quite confused today but alert. I think this may be progression of her dementia. Will set up family meeting to discuss possible senior care care and code status. 08/06/16 Patient did well with the addition of seroquel overnight. we will continue. (4) Dementia Current Visit: Yes Status: Acute Assessment and plan: as stated above Qualifiers: Dementia type: Alzheimer's disease Alzheimer's disease onset: unspecified onset Dementia behavioral disturbance: without behavioral disturbance Qualified Code(s): G30.9 - Alzheimer's disease, unspecified; F02.80 - Dementia in other diseases classified elsewhere without behavioral disturbance (5) Dehydration Current Visit: Yes Status: Acute Assessment and plan: continue IV fluids Patient is eating more now. We will keep her on IV fluids for today as she had IV contrast dye yesterday. (6) Hypokalemia Current Visit: Yes Status: Acute Assessment and plan: replete (7) Hypomagnesemia Current Visit: Yes Status: Acute Assessment and plan: replete (8) Anemia Current Visit: Yes Status: Acute Assessment and plan: normocytic. no signs of bleeding. Possibly dilutional. check hematinics. 08/07/16 Hg stable and trending up Hematinics pending. (9) DVT prophylaxis Current Visit: Yes Status: Acute Assessment and plan: SQ heparin - Subjective Interval history: No major events overnight. the patient was much more calm last night and was able to sleep for the night. this AM she is alert. She denies any complaints or concerns at this time. She is still a poor historian with her dementia. - Constitutional Vitals: Temp Pulse Resp BP Pulse Ox 97.6 F 75 18 100/53 95 08/07/16 03:28 08/07/16 03:28 08/07/16 03:28 08/07/16 03:28 08/07/16 03:28 Exam: General: This is a well-developed well-nourished any for erythema she is alert and orientated only to self. No change from her baseline from yesterday. No acute distress at this time. Head: Head is normocephalic and atraumatic. EENT: Anicteric sclera, moist mucous members, neck is supple without mass or thyromegaly. Trachea midline. Heart: Heart is regular rate and rhythm without murmurs rubs or gallops. Lungs: Normal effort of breathing clear to auscultation bilaterally. Abdomen: Abdomen is soft, nondistended, mildly tender to palpation in the left lower quadrant. Musculoskeletal: Grossly normal for age no gross deformity noted. Extremities: No clubbing, cyanosis or edema. Integument: No rashes or lesions. Internal Medicine: Result - Labs CBC & Chem 7: 08/07/16 06:09 08/06/16 04:35 Labs: Short CBC 08/07/16 Range/Units 06:09 WBC 5.8 (4.3-11.1) K/mcL Hgb 10.3 L (11.5-15.4) g/dL Hct 31.0 L (35.3-44.9) % Plt Count 265 (140-400) K/mcL Neutrophils # 2.9 (1.6-8.9) K/mcL - Impressions Impressions Abdomen/Pelvis CT 08/06/16 19:00 IMPRESSION: 1. Dilation and extensive thickening in the region of the rectum with perirectal edema. Neoplasm versus infection should be considered. 2. No evidence of acute renal abnormality. 3. Well-positioned Mullins catheter in the urinary bladder. D/ / 08/06/2016 20:16:30 Victorina Glaser MD / [email or web address] Interpreting Provider: Victorina Glaser MD Consult Discharge Plan - Plan Referrals: Cristiana Briceño CNP [Primary Care Provider] -
[2016-08-07 06:46] LABS: Immature Reticulocyte % 24.5 % (11.0-38.0); Retculocyte # 0.05 M/mcL (0.05-0.10); Reticulocyte % 1.6 % (1.6-2.8)
[2016-08-07 06:49] LABS: % Iron Saturation 43 % (15-50); BUN/Creatinine Ratio 13 (6-26); Blood Urea Nitrogen 10 mg/dL (7-20); Calcium 8.7 mg/dL (8.6-10.8); Carbon Dioxide 24 mEq/L (19-29); Chloride 108 mEq/L (98-109); Glucose 83 mg/dL (70-99); Iron 88 mcg/dL (50-170); Osmolality,Calculated 286 (280-300); Potassium 3.7 mEq/L (3.5-4.5); Sodium 139 mEq/L (136-145); Transferrin 146 mg/dL (180-382); eGFR For African Americans > 60 (> 60); eGFR For Non-African Americans > 60 (> 60)
[2016-08-07] MEDS ORDERED: 0.9 % Sodium Chloride 1,000 ML IVC SCH (07:00)
[2016-08-07 07:10] LABS: Ferritin 1276 ng/ml (5-204)
[2016-08-07] MEDS: Lactobacillus 1 EACH CAP.SPRINK PO SCH (08:53)
[2016-08-07] MEDS: Famotidine 20 MG TABLET PO SCH (08:53)
[2016-08-07] MEDS ORDERED: levETIRAcetam 500 MG/5 ML UDC PO SCH (09:00)
[2016-08-07] MEDS: Vancomycin Oral Soln 250 MG/2.5 ML UDC PO SCH ×2 (09:32→12:32)
--- NOTE | 2016-08-07 10:22 | Discharge Summary ---
<Adriano Ceron - Last Filed: 08/07/16 15:03> Date of Encounter: 08/07/16 Time of Encounter: 10:19 - Discharge Diagnosis (1) Clostridium difficile colitis Priority: Primary Status: Acute (2) Bacteriuria Priority: Secondary Status: Acute (3) Confusion Priority: Secondary Status: Acute (4) Dementia Priority: Secondary Status: Acute Qualifiers: Dementia type: Alzheimer's disease Alzheimer's disease onset: unspecified onset Dementia behavioral disturbance: without behavioral disturbance Qualified Code(s): G30.9 - Alzheimer's disease, unspecified; F02.80 - Dementia in other diseases classified elsewhere without behavioral disturbance (5) Dehydration Priority: Secondary Status: Acute (6) Hypokalemia Priority: Secondary Status: Acute (7) Hypomagnesemia Priority: Secondary Status: Acute (8) Anemia Priority: Secondary Status: Acute Qualifiers: Qualified Code(s): D64.9 - Anemia, unspecified (9) DVT prophylaxis Priority: Secondary Status: Acute - Discharge Medications Prescriptions: MetroNIDAZOLE 500 MG/100 ML [Flagyl 500 MG/100 ML] 500 mg IVPB Q8H 11 Days Home Medications: Cholecalciferol (D-3) [Vitamin D] 2,000 unit PO DAILY 03/12/16 [History] Citalopram Hydrobromide [Citalopram HBr] 20 mg PO DAILY 03/12/16 [History] Donepezil [Aricept] 10 mg PO HS 03/12/16 [History] Folic Acid 2 mg PO DAILY 03/12/16 [History] Lisinopril-HCTZ 10-12.5 [Prinzide 10-12.5] 1 tab PO DAILY 03/12/16 [History] Pravastatin Sodium [Pravachol] 20 mg PO HS 03/12/16 [History] Multivit-Min/Iron/Folic/Lutein [Centrum Silver Women Tablet] 1 tab PO DAILY 05/22 [History] Aspirin Enteric Coated [Aspirin EC] 81 mg PO DAILY 30 Days 06/18/16 [Rx] Acetaminophen [Tylenol] 650 mg PO Q4H PRN 06/29/16 [History] LevETIRAcetam [Keppra] 1,000 mg PO QAM #20 tablet 07/01/16 [Rx] LevETIRAcetam [Keppra] 500 mg PO QPM 20 Days 07/01/16 [Rx] Memantine HCl [Namenda Xr] 21 mg PO QAM 07/15/16 [History] Lactobacillus [Culturelle] 1 each PO BID cap.sprink 07/19/16 [Rx] TraZODone 50 mg PO HS 08/04/16 [History] Famotidine [Pepcid] 20 mg PO BIDAC tablet 08/07/16 [Rx] MetroNIDAZOLE 500 MG/100 ML [Flagyl 500 MG/100 ML] 500 mg IVPB Q8H 11 Days 08/07 [Rx] Allergies/Adverse Reactions: Allergies No Known Allergies Allergy (Verified 06/16/16 16:02) Procedures/tests Complete & Pending: Procedures Performed prior 72 hours Category Date Time Status CT abd pelvis w iv and oral [CT] Routine Cat Scan 08/06/16 19:00 Completed Date of admission: 08/04/16 16:18 Primary care physician: Cristiana Briceño CNP Consults: 08/04/16 19:02 Consult to Manager Women [CONS] Routine Reason for SW Consult: discharge planning 08/04/16 20:21 Consult to Occupational Therapy [CONS] Routine Comment: Evaluate, develop and implement POC Consult to Physical Therapy [CONS] Routine Comment: Evaluate, develop and implement POC 08/04/16 20:24 Consult to Speech Therapy [CONS] Routine Comment: Evaluate, develop and implement POC Reason for Consult: swallow study Call Completed: No 08/04/16 20:31 Consult to PICC team [Consult to Invasive Line Access Team] [CONS] Routine Reason for Consult: Failed c.diff treatment, will need IV flagyl on discharge Line Type: PICC 08/05/16 11:21 Consult to Invasive Line Access Team [CONS] Routine Reason for Consult: home atb Line Type: EPIV Discharging clinician: Adriano Ceron Anticipated date of discharge: 08/07/16 - Patient Status Disposition: Transfer SNF Condition: Good Functional capacity at discharge: uses cane/walker (activity per PT/OT) Overall status at discharge: patient is progressing back to baseline - Discharge Instructions Instructions: Metronidazole (By mouth), Urinary Tract Infection in Women (DC), Clostridium Difficile Infection (DC), Anemia (GEN) Follow Up With: Cristiana Briceño CNP [Primary Care Provider] - - Diet and Activity Activity: as per physical therapy Diet: advance to your usual diet Hospital course: Ms. Suh is a 76 year old female who was admitted for recurrent Cdiff infection. there was question as to whether or not this constituted a treatment failure or if it was due to poor compliance as she was on PO vancomycin and has severe dementia. Patient family reports patient not always recieving all her medications at skilled nursing. Patient was treated with both PO vancomycin and IV flagyl. She has improved. Her stool frequency has slowed and are more formed. She is stable for discharge today. Of note she had bacturia. However UA was contaminated. Cultures grew Hafnea alvei which uncommonly causes disease in humans unless they are severely immune comprimised. Given this and that she is asymptomatic and her current Cdiff infection it would be unwise to treat this with antibiotics unless she were to become symptomatic. She did have a CT of the abdomen which showed increased thickness of the rectum with perirectal stranding. This is most likley from CDIFF but this should be followed up as outpatient to r/o malignancy. We have discussed plan of care with patiets daughter and son who is POA and they are in agreement. We will discharge her on IV flagyl to ensure that she is receiving the medication. - Time Spent with Patient Total time spent providing and/or coordinating discharge services: Less than 30 minutes - Constitutional Vitals: Temp Pulse Resp BP Pulse Ox 97.6 F 77 15 103/55 97 08/07/16 07:00 08/07/16 07:00 08/07/16 07:00 08/07/16 07:00 08/07/16 07:00 General appearance: Present: A&O X 1, pleasant, no acute distress. Absent: answers questions appropriately - Head Head exam: Present: atraumatic, normocephalic - Eye Eye exam: Present: PERRL, conjuntiva pink, sclera anicteric Pupils: Present: PERRL - Neck Neck exam general surgery: Present: supple, trachea midline. Absent: lymphadenopathy - Respiratory Respiratory exam: Present: CTAB. Absent: accessory muscle use, rales, rhonchi, wheezes - Cardiovascular Cardiovascular exam: Present: RRR, +S1, +S2. Absent: diastolic murmur, gallop, rubs, systolic murmur - GI/Abdominal GI/Abdominal exam: Present: normal bowel sounds, soft, no peritoneal signs. Absent: distended, tenderness - Extremities Exam Extremities exam: Present: warm, radial pulses palpable and symetrical. Absent : calf tenderness, cyanotic, pedal edema - Skin Skin exam: Present: dry, intact <Khushi,Carlos P - Last Filed: 08/07/16 18:16> Date of Encounter: 08/07/16 Procedures/tests Complete & Pending: Procedures Performed prior 72 hours Category Date Time Status CT abd pelvis w iv and oral [CT] Routine Cat Scan 08/06/16 19:00 Completed Date of admission: 08/04/16 16:18 Primary care physician: Cristiana Briceño CNP Consults: 08/04/16 19:02 Consult to Manager Women [CONS] Routine Reason for SW Consult: discharge planning 08/04/16 20:21 Consult to Occupational Therapy [CONS] Routine Comment: Evaluate, develop and implement POC Consult to Physical Therapy [CONS] Routine Comment: Evaluate, develop and implement POC 08/04/16 20:24 Consult to Speech Therapy [CONS] Routine Comment: Evaluate, develop and implement POC Reason for Consult: swallow study Call Completed: No 08/04/16 20:31 Consult to PICC team [Consult to Invasive Line Access Team] [CONS] Routine Reason for Consult: Failed c.diff treatment, will need IV flagyl on discharge Line Type: PICC 08/05/16 11:21 Consult to Invasive Line Access Team [CONS] Routine Reason for Consult: home atb Line Type: EPIV Hospital course: Ms. Suh is a 76 year old female - Time Spent with Patient Total time spent providing and/or coordinating discharge services: - Constitutional Vitals: Temp Pulse Resp BP Pulse Ox 97.6 F 76 15 82/50 86 L 08/07/16 11:00 08/07/16 11:00 08/07/16 11:00 08/07/16 11:00 08/07/16 11:00 - Attending Attestation I examined this patient and my medical decision-making was reviewed with the PRESENTATION DESIGNER/PA/Advanced Practice Nurse/Resident Physician. I agree with the documented findings, disposition and treatment plan as described except to the extent set forth below.
--- NOTE | 2016-08-07 10:29 | Physician Discharge Referral ---
<Adriano Ceron - Last Filed: 08/07/16 15:04> ExtendedCare Referral Info Transfer To: [facility] Provider in Charge: Dr. Puri Provider in Charge after Transfer: PCP Institutional Level of Care: Skilled - Diagnosis (1) Clostridium difficile colitis Status: Acute (2) Bacteriuria Status: Acute (3) Confusion Status: Acute (4) Dementia Status: Acute (5) Dehydration Status: Acute (6) Hypokalemia Status: Acute (7) Hypomagnesemia Status: Acute (8) Anemia Status: Acute (9) DVT prophylaxis Status: Acute - Transfer Medications Prescriptions: MetroNIDAZOLE 500 MG/100 ML [Flagyl 500 MG/100 ML] 500 mg IVPB Q8H 11 Days Home Medications: Cholecalciferol (D-3) [Vitamin D] 2,000 unit PO DAILY 03/12/16 [History] Citalopram Hydrobromide [Citalopram HBr] 20 mg PO DAILY 03/12/16 [History] Donepezil [Aricept] 10 mg PO HS 03/12/16 [History] Folic Acid 2 mg PO DAILY 03/12/16 [History] Lisinopril-HCTZ 10-12.5 [Prinzide 10-12.5] 1 tab PO DAILY 03/12/16 [History] Pravastatin Sodium [Pravachol] 20 mg PO HS 03/12/16 [History] Multivit-Min/Iron/Folic/Lutein [Centrum Silver Women Tablet] 1 tab PO DAILY 05/22 [History] Aspirin Enteric Coated [Aspirin EC] 81 mg PO DAILY 30 Days 06/18/16 [Rx] Acetaminophen [Tylenol] 650 mg PO Q4H PRN 06/29/16 [History] LevETIRAcetam [Keppra] 1,000 mg PO QAM #20 tablet 07/01/16 [Rx] LevETIRAcetam [Keppra] 500 mg PO QPM 20 Days 07/01/16 [Rx] Memantine HCl [Namenda Xr] 21 mg PO QAM 07/15/16 [History] Lactobacillus [Culturelle] 1 each PO BID cap.sprink 07/19/16 [Rx] TraZODone 50 mg PO HS 08/04/16 [History] Famotidine [Pepcid] 20 mg PO BIDAC tablet 08/07/16 [Rx] MetroNIDAZOLE 500 MG/100 ML [Flagyl 500 MG/100 ML] 500 mg IVPB Q8H 11 Days 08/07 [Rx] Allergies/Adverse Reactions: Allergies No Known Allergies Allergy (Verified 06/16/16 16:02) - Respiratory Orders Smoking Cessation: Smoking cessation has been advised. For more information, call the [employer] Quit Line at 5-262-ILQW-NOW. - Ancillary Orders May use pressure relief devices daily prn - Advance Directives Living Will: No Power of Pressure Tester Operator: No Code Status: Full Code - Mobility Orders Other (Per Pt/OT) - Rehabiliation Orders Rehab Potential: Poor Rehab Orders: Evaluation for Physical Therapy, Evaluation for Occupational Therapy - Treatments Skin tear care topically daily PRN per policy - Diet Orders Mechanical Soft (will need assistance with meals) CERTIFICATION: I certify that the transfer of the above named patient to an Extended Care Facility is necessary for the continuing treatment of the diagnosis listed. The above information is true and accurate reflection of patient's current condition. Confidential - Redisclosure prohibited without a patient's written consent. <Carlos Puri P - Last Filed: 08/07/16 18:16> - Respiratory Orders Smoking Cessation: Smoking cessation has been advised. For more information, call the [employer] Quit Line at 2-129-BKSW-NOW. CERTIFICATION: I certify that the transfer of the above named patient to an Extended Care Facility is necessary for the continuing treatment of the diagnosis listed. The above information is true and accurate reflection of patient's current condition. Confidential - Redisclosure prohibited without a patient's written consent.
[2016-08-07] MEDS: NAMENDA 21 MG PO SCH (11:24)
[2016-08-07 12:14] VITALS: BP 82/50
[2016-08-10 07:42] LABS: MMA (VIT B12 STATUS) 0.1 umol/L (0.00-0.40)
== END 2016-08-07 15:58 ==
LOC: EMEROO 11:57 → 2NENU 11:57 → SUATTDRO 20:16
PROVIDERS: ADMIT Internal Medicine; ATTEND Internal Medicine